=== PATIENT | female | born 1960 | race African-American/Black ===

== ENCOUNTER 2016-06-18 08:04 | Emergency (ER) | payer OTHER ==
--- NOTE | 2016-06-18 08:25 | PDOC ---
Attending Attestation - Resident Resident Name: CapriVictor Ma - ED Attending Attestation I have performed the following: I have examined & evaluated the patient, The case was reviewed & discussed with the resident, I agree w/resident's findings & plan, Exceptions are as noted - HPI HPI: 06/18/16 08:27 The patient is a 55-year-old female with a significant past medical history of chronic gastritis, chronic intermittent abdominal pain/vomiting (presumed secondary to gastroparesis due to long-term marijuana use), who presents to the emergency department with abdominal pain, nausea and vomiting. She states that these symptoms are identical to her many previous episodes. She denies fever, chills, sweats. 06/18/16 08:43 - Physicial Exam PE: 06/18/16 08:30 Abdomen is soft and non-tender 06/18/16 08:46 EKG noted: Normal sinus rhythm at 66, first degree AV block, biphasic/inverted T waves in 1, aVL, V5 and V6 - Medical Decision Making 06/18/16 08:43 The patient is well-appearing and in no acute distress Will obtain labs including CRP and lactic acid to increase negative predictive value of her workup Will administer IV fluids, IV Pepcid, IV morphine, IV Reglan 06/18/16 09:07 She continues to have abdominal pain Repeat abdominal examination, nontender Will await labs and continue to reassess EKG noted with nonspecific T wave changes The patient denies chest pain, dyspnea Given that her symptoms have been ongoing for more than 12 hours, I feel that a single negative troponin has an extremely high negative predictive value for cardiovascular causes of her current symptomatology We have provided her a copy of her EKG, and instructed her to follow-up with her primary care physician as soon as possible, and at minimum on Wednesday, for further evaluation 06/18/16 12:12 Labs noted The patient states that her symptoms of resolved, and she would like to go home She is tolerating fluids Repeat abdominal examination: Nontender Clinical impression: Acute exacerbation of chronic gastroparesis I discussed the physical exam findings, ancillary test results and final diagnoses with the patient. I answered all of the patient's questions. The patient was satisfied with the care received and felt comfortable with the discharge plan and treatment plan. The patient will call their primary care physician within 24 hours to arrange follow-up and will return to the Emergency Department with any new, persistent or worsening symptoms. A portion of this note was documented by scribe services under my direction. I have reviewed the details of the note, within reason, and agree with the documentation with the following case summary and management plan written by me.
[2016-06-18] MEDS ORDERED: FAMOTIDINE 20 MG/50 ML IVPB 50 ML IVPB ONE ×2 (08:37→09:30)
[2016-06-18] MEDS ORDERED: morphine CARPU-JECT 4 MG/1 ML DISP.SYRIN IVPUSH ONE (08:37)
[2016-06-18] MEDS ORDERED: SODIUM CHLORIDE 1,000 ML IV STA (08:37)
[2016-06-18] MEDS ORDERED: METOCLOPRAMIDE HCL INJECTION 10 MG/2 ML VIAL IVPB ONE (08:37)
--- NOTE | 2016-06-18 08:42 | PDOC ---
History of Present Illness - General Stated Complaint: ABDOMINAL PAIN Time Seen by Provider: 06/18/16 08:11 History Source: Patient Exam Limitations: No Limitations - History of Present Illness Initial Comments: 06/18/16 09:07 Patient is a 55 year old female with chronic gastroparesis due to marijuana smoking who presents to ED with acute onset abdominal pain. She woke up this morning and describes severe LLQ pain that radiated to her groin & back. She states she has had multiple episodes of vomiting but has not had any while in ED. Pain si similar to past episodes, "just worse", according to patient. She is rocking back and forth in bed during interview. She denies chest pain, SOB, hematuria, dysuria, headache, cough. States she last used marijuana yesterday. Last smoked cigarettes yesterday. Past History - Travel Traveled outside of the country in the last 30 days: No Close contact w/someone who was outside of country & ill: No - Past Medical History Allergies/Adverse Reactions: Allergies Allergy/AdvReac Type Severity Reaction Status Date / Time ibuprofen [From Motrin] Allergy Verified 06/18/16 13:18 Home Medications: Ambulatory Orders Amlodipine Besylate [Norvasc -] 10 mg PO DAILY 05/31/15 Pantoprazole Sodium [Protonix -] 20 mg PO BID 06/01/15 Lisinopril [Prinivil] 10 mg PO DAILY #30 tablet 06/04/15 Anemia: No Asthma: No Cancer: No Cardiac Disorders: Yes (irregular heart beat) CVA: No COPD: No CHF: No Dementia: No Diabetes: No GI Disorders: Yes (Gastritis) Disorders: Yes (fibroid uterus) HTN: Yes Hypercholesterolemia: Yes Kidney Stones: No Liver Disease: No Suicide Attempt (Hx): No Seizures: No Thyroid Disease: No - Surgical History Abdominal Surgery: Yes (periumbical HERNIA in childhood) Appendectomy: No Cardiac Surgery: No Cholecystectomy: No Lung Surgery: No Neurologic Surgery: No Orthopedic Surgery: Yes (l leg surgery ,r ankle surgery) - Immunization History Immunization Up to Date: Yes - Psycho/Social/Smoking Cessation Hx Anxiety: No Suicidal Ideation: No Smoking Status: No Smoking History: Current every day smoker Years of Tobacco Use: 40 Have you smoked in the past 12 months: Yes Number of Cigarettes Smoked Daily: 3 Cigars Per Day: 0 'Breaking Loose' booklet given: 01/30/15 Hx Alcohol Use: No Drug/Substance Use Hx: Yes (marijuana (yesterday last use)) Substance Use Type: Marijuana Hx Substance Use Treatment: Yes (h/o crack cocaine quit since 2004) Review of Systems - Review of Systems Able to Perform ROS?: Yes Is the patient limited Azeri proficient: No Constitutional: No: Chills, Fever, Weakness HEENTM: No: Blurred Vision, Nose Congestion, Throat Pain, Difficulty Swallowing Respiratory: No: Cough, Shortness of Breath, SOB with Exertion, Wheezing, Productive cough Cardiac (ROS): No: Chest Pain, Edema, Irregular Heart Rate, Lightheadedness, Palpitations ABD/GI: Yes: Nausea, Vomiting, Abdominal cramping. No: Abdominal Distended, Blood Streaked Bowels, Constipated, Diarrhea : No: Burning, Dysuria Musculoskeletal: Yes: Back Pain Integumentary: No: Bruising, Change in Color, Dryness, Erythema Neurological: No: Headache, Numbness, Tingling, Tremors All Other Systems: Reviewed and Negative *Physical Exam - Physical Exam General Appearance: Yes: Nourished, Appropriately Dressed, Apparent Distress HEENT: positive: EOMI, SYDNIE, Normal ENT Inspection, Pharynx Normal Neck: positive: Trachea midline, Normal Thyroid, Supple Respiratory/Chest: positive: Lungs Clear, Normal Breath Sounds Cardiovascular: positive: Regular Rhythm, Regular Rate, S1, S2 Gastrointestinal/Abdominal: positive: Normal Bowel Sounds, Soft, Other ( NONTENDER TO PALPATION, NO RIGIDITY/GUARDING/REBOUND TENDERNESS) Musculoskeletal: positive: Normal Inspection Extremity: positive: Normal Inspection, Normal Range of Motion Integumentary: positive: Normal Color, Dry, Warm Neurologic: positive: 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 No abdominal tenderness to palpation on exam. Given Reglan, Morphine & Pepcid for symptom relief. Ordered abdominal workup. 06/18/16 10:32 Pain improved but still moderate. Will give Ofirmev 1 gram and reassess. Lipase normal 36. CBC, CMP, Troponin, Lactic acid all within normal limits. 06/18/16 11:06 Patient sleeping in bed comfortably. Vitals stable. Afebrile. Will reassess when awake. 06/18/16 12:13 Patient states pain has resolved. Lying comfortably in bed and states she wants to go home. Instructed to abstain from marijuana and tobacco use to prevent further exacerbations of her chronic gastritis. Instructed to f/u with PCP within 2-3 days to workup new ECG findings. Stable for discharge. *DC/Admit/Observation/Transfer Diagnosis at time of Disposition: Chronic gastritis - Discharge Dispostion Disposition: HOME Condition at time of disposition: Improved Admit: No - Referrals Referrals: Kalani Chase MD [Primary Care Provider] - - Patient Instructions Additional Instructions: AVOID MARIJUANA & TOBACCO USE, THEY WILL MAKE YOUR STOMACH PAIN WORSE! Your EKG shows some abnormalities, it is ESSENTIAL that you followup with your primary care doctor to work it up on Wednesday. BRING YOUR EKG WITH YOU TO YOUR DOCTORS APPOINTMENT!
[2016-06-18 08:47] VITALS: TEMP 98; BMI 32.5
[2016-06-18] MEDS ORDERED: morphine CARPU-JECT 4 MG/1 ML DISP.SYRIN ONE (09:04)
[2016-06-18] MEDS ORDERED: METOCLOPRAMIDE HCL INJECTION 10 MG/2 ML VIAL ONE (09:30)
[2016-06-18 09:55] LABS: URINE APPEARANCE CLEAR; URINE BILIRUBIN NEGATIVE (NEGATIVE); URINE BLOOD NEGATIVE (NEGATIVE); URINE COLOR LTYELLOW; URINE GLUCOSE (UA) NEGATIVE (NEGATIVE); URINE KETONE NEGATIVE (NEGATIVE); URINE LEUK ESTERASE NEGATIVE (NEGATIVE); URINE NITRITE NEGATIVE (NEGATIVE); URINE PROTEIN NEGATIVE (NEGATIVE); URINE UROBILINOGEN NEGATIVE E.U./dl (0.2-1.0)
[2016-06-18 10:11] LABS: BASOPHIL 0.7 % (0-2.0); EOSINOPHIL 1.3 % (0-4.5); MCH 29.5 pg (25.7-33.7); MCHC 32.4 g/dl (32.0-36.0); MEAN CELL VOLUME 90.9 fl (80-96); NEUTROPHILS 58.3 % (42.8-82.8); PLATELET COUNT 254 K/MM3 (134-434); RDW 13.9 % (11.6-15.6); WHITE BLOOD COUNT 5.8 K/mm3 (4.0-10.0)
[2016-06-18 10:18] LABS: URINE MARIJUANA THC POSITIVE ng/ml (CUTOFF=50)
--- NOTE | 2016-06-18 10:28 | EKG ---
Test Reason : Blood Pressure : / mmHG Vent. Rate : 065 BPM Atrial Rate : 065 BPM P-R Int : 244 ms QRS Dur : 096 ms QT Int : 406 ms P-R-T Axes : 054 -14 110 degrees QTc Int : 422 ms SINUS RHYTHM WITH 1ST DEGREE A-V BLOCK ABNORMAL ECG WHEN COMPARED WITH ECG OF 02-JUN-2015 17:03, VT INTERVAL HAS INCREASED VENT. RATE HAS DECREASED BY 38 BPM T WAVE INVERSION NOW EVIDENT IN LATERAL LEADS QT HAS SHORTENED Confirmed by PRINCESS TIPTON MD ([id number]) on 06/18/2016 10:28:34 AM Referred By: Confirmed By:PRINCESS TIPTON MD
[2016-06-18] MEDS ORDERED: ACETAMINOPHEN 1000 MG/100 ML VIAL (NON FORMULARY) IVPB ONE (10:31)
[2016-06-18] MEDS ORDERED: ACETAMINOPHEN INJECTION 100 ML IVPB ONE (10:35)
[2016-06-18 11:55] LABS: ALBUMIN 3.6 g/dl (3.4-5.0); ANION GAP 6 (8-16); BILIRUBIN,TOTAL 0.3 mg/dL (0.2-1.0); CO2 28 mmol/L (21-32); CREATININE 0.8 mg/dL (0.55-1.02); GLUCOSE,RANDOM 95 mg/dL (74-106); SGOT/AST 16 U/L (15-37); SGPT/ALT 18 U/L (12-78); TOT PROT 7.1 g/dl (6.4-8.2)
[2016-06-18 11:56] LABS: ALK PHOS 87 U/L (45-117)
[2016-06-18 11:58] LABS: TROPONIN I < 0.02 ng/ml (0.00-0.05)
[2016-06-18 12:20] LABS: C-REACTIVE PROTEIN < 0.3 MG/DL (0.00-0.3)
[2016-06-18 13:24] VITALS: BP 138/75; PULSE 65
== END 2016-06-18 14:09 | disposition home or self-care (01) ==
LOC: JER 08:04
PROC: 3E033NZ Introduction of Analgesics, Hypnotics, Sedatives into Peripheral Vein, Percutaneous Approach (ICD-10-PCS; principal; 2016-06-18)
PROC: 3E033GC Introduction of Other Therapeutic Substance into Peripheral Vein, Percutaneous Approach (ICD-10-PCS; 2016-06-18)
PROC: 3E0337Z Introduction of Electrolytic and Water Balance Substance into Peripheral Vein, Percutaneous Approach (ICD-10-PCS; 2016-06-18)
DX: K29.50 Unspecified chronic gastritis without bleeding (principal); I10 Essential (primary) hypertension
CPT/HCPCS: 36415; 80053; 80307; 81003; 82550; 83605; 84484; 85025; 86140; 93005; 93010; 99282-25

== ENCOUNTER 2016-06-20 06:32 | Inpatient (IN) | payer OTHER ==
[2016-06-20 06:48] VITALS: BMI 33.8
--- NOTE | 2016-06-20 07:05 | PDOC ---
History of Present Illness - General Chief Complaint: Pain Stated Complaint: ABDOMINAL PAIN Time Seen by Provider: 06/20/16 07:04 History Source: Patient - History of Present Illness Initial Comments: 06/20/16 09:39 Patient is a 55-year-old female past medical history of HTN, intractable vomiting and gastroparesis from chronic marijuana use, presenting to the ED today complaining of diffuse abdominal pain, nausea, and vomiting and states this morning. Patient states her abdominal pain woke her from sleep and she began to vomit. Patient states that since her initial presentation of vomiting she is gagging and cannot stop vomiting. She rates her pain a 10 out of 10 and states that the pain is diffuse but worse over her belly button. She has not taken anything for the nausea vomiting or pain. Denies any new foods or recent antibiotic use recently travel or sick contacts. Patient does admit to marijuana and tobacco use however patient states that she has not used marijuana since her last ER visit on 06/18/2016. Past History - Past Medical History Allergies/Adverse Reactions: Allergies Allergy/AdvReac Type Severity Reaction Status Date / Time ibuprofen [From Motrin] Allergy Verified 06/20/16 06:47 Home Medications: Ambulatory Orders Amlodipine Besylate [Norvasc -] 10 mg PO DAILY 05/31/15 Pantoprazole Sodium [Protonix -] 20 mg PO BID 06/01/15 Lisinopril [Prinivil] 10 mg PO DAILY #30 tablet 06/04/15 Anemia: No Asthma: No Cancer: No Cardiac Disorders: Yes (irregular heart beat) CVA: No COPD: No CHF: No Dementia: No Diabetes: No GI Disorders: Yes (Gastritis) Disorders: Yes (fibroid uterus) HTN: Yes Hypercholesterolemia: Yes Kidney Stones: No Liver Disease: No Suicide Attempt (Hx): No Seizures: No Thyroid Disease: No - Surgical History Abdominal Surgery: Yes (periumbical HERNIA in childhood) Appendectomy: No Cardiac Surgery: No Cholecystectomy: No Lung Surgery: No Neurologic Surgery: No Orthopedic Surgery: Yes (l leg surgery ,r ankle surgery) - Immunization History Immunization Up to Date: Yes - Psycho/Social/Smoking Cessation Hx Anxiety: No Suicidal Ideation: No Smoking Status: No Smoking History: Current every day smoker Years of Tobacco Use: 40 Have you smoked in the past 12 months: Yes Number of Cigarettes Smoked Daily: 3 Cigars Per Day: 0 Information on smoking cessation initiated: Yes 'Breaking Loose' booklet given: 01/30/15 Hx Alcohol Use: No Drug/Substance Use Hx: No Substance Use Type: Marijuana Hx Substance Use Treatment: Yes (h/o crack cocaine quit since 2004) *Physical Exam - Vital Signs Last Vital Signs Temp Pulse Resp BP Pulse Ox 97.9 F 86 20 187/100 100 06/20/16 06:44 06/20/16 06:44 06/20/16 06:44 06/20/16 06:44 06/20/16 06:44 - Physical Exam Comments: 06/20/16 09:43 GENERAL: Well developed, well nourished. Awake and alert. In moderate distress rolling on bed. HEENT: Normocephalic, atraumatic. PERRLA, EOMI. No conjunctival pallor. Sclera are non- icteric. Moist mucous membranes. Oropharynx is clear. NECK: Supple. Full ROM. No JVD. Carotid pulses 2+ and symmetric, without bruits. No thyromegaly. No lymphadenopathy. CARDIOVASCULAR: Regular rate and rhythm. No murmurs, rubs, or gallops. Distal pulses are 2+ and symmetric. PULMONARY: No evidence of respiratory distress. Lungs clear to auscultation bilaterally. No wheezing, rales or rhonchi. ABDOMINAL: (+) tenderness over the periumbilical region, LLQ and RRQ. Soft. Non-distended. No rebound or guarding. (-) psoas/obturator sign. No organomegaly. Normoactive bowel sounds. MUSCULOSKELETAL Normal range of motion at all joints. No bony deformities or tenderness. No CVA tenderness. EXTREMITIES: No cyanosis. No clubbing. No edema. No calf tenderness. SKIN: Warm and dry. Normal capillary refill. No rashes. No jaundice. NEUROLOGICAL: Alert, awake, appropriate. Cranial nerves 2-12 intact. No deficits to light touch and temperature in face, upper extremities and lower extremities. No motor deficits in the in face, upper extremities and lower extremities. Normoreflexic in the upper and lower extremities. Normal speech. Toes are down- going bilaterally. Gait is normal without ataxia. PSYCHIATRIC: Cooperative. Good eye contact. Appropriate mood and affect. ED Treatment Course - LABORATORY CBC & Chemistry Diagram: 06/20/16 08:10 06/20/16 08:10 Medical Decision Making - Medical Decision Making 06/20/16 07:46 Patient is a 55-year-old female presenting with nausea, and vomiting, abdominal pain 4 hours. Patient appears uncomfortable will medicate for pain and treat nausea symptoms. Will draw basic labs to look for signs of infection, hydration status, kidney function. we'll also draw a lipase level and cardiac labs. Less concerned for bowel obstruct or perforation given lack of peritoneal signs. Will reevaluate. 1. CBC, CMP, UA for infection 2. EKG, cardiac labs 3. Morphine, Zofran, pepsid and fluids for symptomatic relief. Will re-evaluate 06/20/16 08:51 Pt. is still complaining of pain. Nausea and vomiting has stopped at this point. Will try mylanta and bentyl now. Re-evaluate 06/20/16 10:30 Pt. appears to be resting comfortably she is no longer rolling on the bed, but she is still complaining of 10/10 abdominal pain. Will try IV tylenol at this time as it seemed to help her symptoms during her last visit. 06/20/16 11:43 Pt. was gagging/dry heaving while having her EKG done. Ordered reglan and benadryl. While putting in the order pt. fell asleep. Will wait to see how she feels when she wakes up before administering the reglan and benadryl. 06/20/16 12:17 Pt is still vomiting. Will give the reglan and benadryl at this time. Will also give one of dilaudid. Given the amount of pain and intractable vomiting, will admit to obs. EKG shows prolonged WI interval with T wave inversions in the I, aVL, V6.This is unchanged from her visit on 06/18/16; however these changes were new at that time. Will admit to tele obs. *DC/Admit/Observation/Transfer Diagnosis at time of Disposition: Intractable abdominal pain Intractable nausea and vomiting Qualifiers: Vomiting type: cyclical vomiting Qualified Code(s): G43.A1 - Cyclical vomiting , intractable - Discharge Dispostion Condition at time of disposition: Stable Admit: Yes
[2016-06-20] MEDS ORDERED: ONDANSETRON 4 MG/2 ML VIAL IVPUSH ONE (07:20)
[2016-06-20] MEDS ORDERED: FAMOTIDINE 20 MG/50 ML IVPB 50 ML IVPB ONE ×2 (07:20→07:42)
[2016-06-20] MEDS ORDERED: SODIUM CHLORIDE 1,000 ML IV STA (07:20)
[2016-06-20] MEDS ORDERED: morphine CARPU-JECT 2 MG/1 ML DISP.SYRIN IVPUSH ONE (07:22)
[2016-06-20] MEDS ORDERED: ONDANSETRON 4 MG/2 ML VIAL ONE (07:42)
[2016-06-20] MEDS ORDERED: morphine CARPU-JECT 2 MG/1 ML DISP.SYRIN ONE (07:42)
[2016-06-20 08:21] LABS: BASOPHIL 0.4 % (0-2.0); EOSINOPHIL 0.1 % (0-4.5); MCHC 32.8 g/dl (32.0-36.0); MEAN CELL VOLUME 91.5 fl (80-96); MEAN PLT VOLUME 9.7 fl (7.5-11.1); NEUTROPHILS 85.5 % (42.8-82.8); PLATELET COUNT 246 K/MM3 (134-434); RDW 13.8 % (11.6-15.6); WHITE BLOOD COUNT 7.5 K/mm3 (4.0-10.0)
[2016-06-20 08:49] LABS: ALBUMIN 4.2 g/dl (3.4-5.0); ANION GAP 8 (8-16); BILIRUBIN,TOTAL 0.4 mg/dL (0.2-1.0); CALCIUM 9.1 mg/dL (8.5-10.1); CO2 24 mmol/L (21-32); CREATININE 0.8 mg/dL (0.55-1.02); GLUCOSE,RANDOM 155 mg/dL (74-106); SGPT/ALT 24 U/L (12-78); TOT PROT 8.6 g/dl (6.4-8.2)
[2016-06-20 08:52] LABS: ALK PHOS 96 U/L (45-117); TROPONIN I < 0.02 ng/ml (0.00-0.05)
[2016-06-20 08:54] LABS: SGOT/AST 27 U/L (15-37)
[2016-06-20] MEDS ORDERED: DICYCLOMINE HCL 20 MG TABLET PO ONE (09:17)
[2016-06-20] MEDS ORDERED: MAG HYDROX/AL HYDROX/SIMETH 30 ML UNIT-DOSE CUP PO ONE (09:17)
[2016-06-20] MEDS ORDERED: DICYCLOMINE HCL 10 MG CAPSULE ONE (09:42)
[2016-06-20] MEDS ORDERED: MAG HYDROX/AL HYDROX/SIMETH 30 ML UNIT-DOSE CUP ONE (09:42)
[2016-06-20] MEDS ORDERED: ACETAMINOPHEN 1000 MG/100 ML VIAL (NON FORMULARY) IVPB ONE (10:27)
--- NOTE | 2016-06-20 10:40 | PDOC ---
*Physical Exam - Vital Signs Last Vital Signs Temp Pulse Resp BP Pulse Ox 98.4 F 83 20 130/82 100 06/20/16 07:55 06/20/16 07:55 06/20/16 06:44 06/20/16 07:55 06/20/16 07:55 - Physical Exam Comments: 06/20/16 10:40 The patient was examined by [SHARON Welsh] under my direct supervision. I personally evaluated the patient. I concur with the above findings and the plan of care. 06/20/16 15:56 Called to patient's bedside. Patient with significantly elevated blood pressure. Patient reports that she hasn't taken any of her antihypertensive medications for the past 2 days due to abdominal pain and vomiting. Will initiate nitroglycerin drip IV. Will attempt administering by mouth meds with a goal of the weaning off nitroglycerin after a period of time. ED Treatment Course - LABORATORY CBC & Chemistry Diagram: 06/20/16 08:10 06/20/16 08:10 - ADDITIONAL ORDERS Additional order review: Laboratory Results 06/20/16 08:10 Sodium 141 Potassium 4.5 Chloride 109 H Carbon Dioxide 24 Anion Gap 8 BUN 13 D Creatinine 0.8 Creat Clearance w eGFR > 60 Random Glucose 155 H D Calcium 9.1 Total Bilirubin 0.4 D AST 27 D ALT 24 D Alkaline Phosphatase 96 Creatine Kinase 165 D CK-MB (CK-2) 1.786 Troponin I < 0.02 Total Protein 8.6 H D Albumin 4.2 Lipase 105 06/20/16 08:10 RBC 4.93 MCV 91.5 MCHC 32.8 RDW 13.8 MPV 9.7 Neutrophils % 85.5 H D Lymphocytes % 11.9 D Monocytes % 2.1 L Eosinophils % 0.1 D Basophils % 0.4 - Medications Given in the ED: ED Medications Discontinued Medications Generic Name Dose Route Start Last Admin Trade Name Freq PRN Reason Stop Dose Admin Al Hydroxide/Mg Hydroxide 30 ml 06/20/16 09:17 06/20/16 09:40 Mylanta Oral Suspension - PO 06/20/16 09:18 30 ml ONCE ONE Administration Dicyclomine HCl 20 mg 06/20/16 09:17 06/20/16 09:40 Bentyl - PO 06/20/16 09:18 20 mg ONCE ONE Administration Famotidine/Sodium Chloride 50 mls @ 100 mls/hr 06/20/16 07:20 06/20/16 08:15 Pepcid 20 Mg Premixed Ivpb - IVPB 06/20/16 07:49 100 mls/hr ONCE ONE Administration Sodium Chloride 1,000 mls @ 1,000 mls/hr 06/20/16 07:20 06/20/16 08:15 Normal Saline - IV 06/20/16 08:19 1,000 mls/hr ASDIR STA Administration Morphine Sulfate 2 mg 06/20/16 07:22 06/20/16 08:15 Morphine Injection - IVPUSH 06/20/16 07:23 2 mg ONCE ONE Administration Ondansetron HCl 4 mg 06/20/16 07:20 06/20/16 08:15 Zofran Injection IVPUSH 06/20/16 07:21 4 mg ONCE ONE Administration *DC/Admit/Observation/Transfer Diagnosis at time of Disposition: Intractable nausea and vomiting, Intractable abdominal pain - Discharge Dispostion Condition at time of disposition: Stable
[2016-06-20] MEDS ORDERED: ACETAMINOPHEN INJECTION 100 ML IVPB ONE (10:46)
[2016-06-20] MEDS ORDERED: METOCLOPRAMIDE HCL INJECTION 10 MG/2 ML VIAL IVPUSH ONE (11:27)
[2016-06-20] MEDS ORDERED: HYDROmorphone HCL CARPU-JECT 1 MG/1 ML DISP.SYRIN IVPUSH ONE (12:24)
[2016-06-20] MEDS ORDERED: HYDROmorphone HCL CARPU-JECT 1 MG/1 ML DISP.SYRIN ONE (12:31)
[2016-06-20] MEDS ORDERED: METOCLOPRAMIDE HCL INJECTION 10 MG/2 ML VIAL ONE (12:32)
[2016-06-20] MEDS ORDERED: METOCLOPRAMIDE HCL 10 MG TABLET (FP) PO ONE (12:32)
--- NOTE | 2016-06-20 13:11 | EKG ---
Test Reason : Blood Pressure : / mmHG Vent. Rate : 066 BPM Atrial Rate : 066 BPM P-R Int : 316 ms QRS Dur : 096 ms QT Int : 410 ms P-R-T Axes : 038 -14 121 degrees QTc Int : 429 ms SINUS RHYTHM WITH SINUS ARRHYTHMIA WITH 1ST DEGREE A-V BLOCK POSSIBLE LEFT ATRIAL ENLARGEMENT SEPTAL INFARCT , AGE UNDETERMINED MARKED ST ABNORMALITY, POSSIBLE LATERAL SUBENDOCARDIAL INJURY ABNORMAL ECG Confirmed by SALOME BOB MD ([id number]) on 06/20/2016 1:11:37 PM Referred By: Confirmed By:SALOME BOB MD
[2016-06-20 13:12] LABS: URINE APPEARANCE CLEAR; URINE BILIRUBIN NEGATIVE (NEGATIVE); URINE BLOOD NEGATIVE (NEGATIVE); URINE COLOR STRAW; URINE GLUCOSE (UA) 2+ (NEGATIVE); URINE KETONE 1+ (NEGATIVE); URINE LEUK ESTERASE NEGATIVE (NEGATIVE); URINE NITRITE NEGATIVE (NEGATIVE); URINE UROBILINOGEN NEGATIVE E.U./dl (0.2-1.0)
--- NOTE | 2016-06-20 13:16 | HP ---
PCP: Kalani Chase CHIEF COMPLAINT: Nausea and vomiting HISTORY OF PRESENT ILLNESS: This is a 55-year-old woman who presented to the ER this morning complaining of nausea, vomiting and abdominal pain for the last 4 days. The pain is diffuse. She denies hematemesis, melena, rectal bleeding, weight loss, flank pain, dysuria, hematuria. She has not been able to keep down liquids or solid food. She had been seen in the ER for the same complaints on 06/18. She was treated with Reglan, morphine, Pepcid and acetaminophen IV, and she was discharged. She was advised to avoid tobacco and marijuana. She last used marijuana on 06/18. After, receiving morphine, Zofran, Reglan, IV fluid and Dilaudid in the ER, she feels only a little bit better. PAST MEDICAL HISTORY HTN Gastritis Gastroparesis PAST SURGICAL HISTORY Hysterectomy Hernia repair Allergies ibuprofen [From Motrin] Allergy (Verified 06/20/16 06:47) HOME MEDICATIONS 3 Medication Instructions Recorded Amlodipine Besylate [Norvasc -] 10 mg PO DAILY 05/31/15 Pantoprazole Sodium [Protonix -] 20 mg PO BID 06/01/15 Lisinopril [Prinivil] 10 mg PO DAILY #30 tablet 06/04/15 Social History: Smoking: Smokes less than 1/2 PPD Alcohol: None Drugs: Marijuana Recent Travel: No Family History: Non-contributory REVIEW OF SYSTEMS CONSTITUTIONAL: Present: chills. Absent: fever, diaphoresis, generalized weakness, malaise, loss of appetite, weight change HEENT: Absent: rhinorrhea, nasal congestion, throat pain, throat swelling, difficulty swallowing, mouth swelling, ear pain, eye pain, visual changes CARDIOVASCULAR: Absent: chest pain, syncope, palpitations, lightheadedness, peripheral edema RESPIRATORY: Absent: cough, shortness of breath, dyspnea with exertion, orthopnea, wheezing, stridor, hemoptysis GASTROINTESTINAL: Present: abdominal pain, nausea, vomiting. Absent: abdominal distension, diarrhea, constipation, melena, hematochezia GENITOURINARY: Absent: dysuria, frequency, urgency, hesitancy, hematuria MUSCULOSKELETAL: Absent: myalgia, arthralgia, joint swelling, back pain, neck pain SKIN: Absent: rash, itching, pallor HEMATOLOGIC/IMMUNOLOGIC: Absent: easy bleeding, easy bruising, lymphadenopathy, frequent infections ENDOCRINE: Absent: unexplained weight gain, unexplained weight loss, heat intolerance, cold intolerance NEUROLOGIC: Absent: headache, focal weakness, paresthesias, dizziness, unsteady gait, seizure, mental status changes, bladder or bowel incontinence PSYCHIATRIC: Absent: anxiety, depression, suicidal or homicidal ideation, hallucinations. PHYSICAL EXAMINATION Vital Signs Period Temp Pulse Resp BP Sys/Martinez Pulse Ox Last 24 Hr 97.9 F-98.4 F 83-86 20 130-187/82-100 100-100 GENERAL: Awake, alert, and fully oriented, in no acute distress. HEAD: Normal with no signs of trauma. EYES: Pupils equal, round and reactive to light, extraocular movements intact, sclerae anicteric, conjunctivae clear. EARS, NOSE, THROAT: Ears normal, nares patent, oropharynx clear without exudates. Moist mucous membranes. NECK: Normal range of motion, supple without lymphadenopathy, JVD, or masses. LUNGS: Breath sounds equal, clear to auscultation bilaterally. No wheezes, and no crackles. No accessory muscle use. HEART: Regular rate and rhythm, normal S1 and S2 without murmur, rub or gallop. ABDOMEN: Obese, soft, mild epigastric tenderness, not distended, normoactive bowel sounds, no guarding, no rebound, no masses. No hepatomegaly or splenomegaly. MUSCULOSKELETAL: Normal range of motion at all joints. No bony deformities or tenderness. No CVA tenderness. UPPER EXTREMITIES: 2+ pulses, warm, well-perfused. No cyanosis. No clubbing. Cap refill <2 seconds. No peripheral edema. LOWER EXTREMITIES: 2+ pulses, warm, well-perfused. No calf tenderness. No peripheral edema. NEUROLOGICAL: Cranial nerves II-XII intact. Normal speech. Gait not observed. PSYCHIATRIC: Cooperative. Good eye contact. Appropriate mood and affect. SKIN: Warm, dry, normal turgor, no rashes or lesions noted. Laboratory Results - last 24 hr 06/20/16 06/20/16 08:10 08:10 WBC 7.5 RBC 4.93 Hgb 14.8 Hct 45.1 MCV 91.5 MCHC 32.8 RDW 13.8 Plt Count 246 MPV 9.7 Neutrophils % 85.5 H D Lymphocytes % 11.9 D Monocytes % 2.1 L Eosinophils % 0.1 D Basophils % 0.4 Sodium 141 Potassium 4.5 Chloride 109 H Carbon Dioxide 24 Anion Gap 8 BUN 13 D Creatinine 0.8 Creat Clearance w eGFR > 60 Random Glucose 155 H D Calcium 9.1 Total Bilirubin 0.4 D AST 27 D ALT 24 D Alkaline Phosphatase 96 Creatine Kinase 165 D CK-MB (CK-2) 1.786 Troponin I < 0.02 Total Protein 8.6 H D Albumin 4.2 Lipase 105 EKG: Sinus rhythm, rate 66. Sinus arrhythmia. 1st degree AVB. Inverted Ts in I, aVL. ST depressions in V5-V6. ASSESSMENT/PLAN: This is a 55-year-old woman with a history of gastroparesis, marijuana use, HTN , gastritis who comes to the ER because of abdominal pain, nausea, vomiting x 4 days. She is being placed in observation now for further evaluation of an emergent condition. 1. Intractable nausea and vomiting secondary to gastroparesis - IV fluid - NPO and advance diet as tolerated - Reglan IV - Discussed marijuana avoidance 2. Abnormal EKG - No change from 06/18 - Troponin negative x 1 - Serial troponins - Echocardiogram - Monitor on telemetry 3. Hypertension - Continue Norvasc, Lisinopril 4. Gastritis - Continue Protonix 5. Marijuana use Problem List - Problem (1) Abnormal EKG Code(s): R94.31 - ABNORMAL ELECTROCARDIOGRAM [ECG] [EKG] Visit type - Emergency Visit Emergency Visit: Yes Care time: The patient presented to the Emergency Department on the above date and was hospitalized for further evaluation of their emergent condition. - New Patient This patient is new to me today: Yes Date on this admission: 06/20/16 - Critical Care Critical Care patient: No
[2016-06-20 13:18] LABS: URINE PROTEIN 1+ (NEGATIVE)
[2016-06-20 13:23] LABS: URINE BACTERIA RARE /hpf (NONE SEEN); URINE MUCUS RARE; URINE RBC 7 /hpf (0-3); URINE WBC 2 /hpf (3-5)
[2016-06-20] MEDS ORDERED: METOCLOPRAMIDE HCL INJECTION 10 MG/2 ML VIAL IVPB PRN (13:33)
[2016-06-20] MEDS ORDERED: SODIUM CHLORIDE 1,000 ML IV SCH (13:45)
[2016-06-20] MEDS ORDERED: LABETALOL HCL 5 MG/1 ML (100MG/20 ML VIAL) IVPUSH ONE (14:41)
[2016-06-20] MEDS ORDERED: LABETALOL HCL 5 MG/1 ML (200MG/40ML VIAL) IVPB ONE (14:43)
[2016-06-20] MEDS ORDERED: NITROGLYCERIN 25MG/D5W 250ML 250 ML IVPB ONE (15:58)
[2016-06-20] MEDS ORDERED: NITROGLYCERIN 25MG/D5W 250ML 250 ML IVPB SCH (16:00)
[2016-06-20] MEDS ORDERED: LISINOPRIL 10 MG TABLET (FP) PO ONE (16:00)
[2016-06-20] MEDS ORDERED: amLODIPine BESYLATE 10 MG TABLET (FP) PO ONE (16:00)
[2016-06-20] MEDS ORDERED: amLODIPine BESYLATE 5 MG TABLET (FP) ONE (16:22)
[2016-06-20] MEDS ORDERED: LISINOPRIL 5 MG TABLET (FP) ONE (16:22)
[2016-06-20] MEDS: HYDROmorphone HCL CARPU-JECT 1 MG/1 ML DISP.SYRIN IVPB PRN (19:49)
[2016-06-20] MEDS: ACETAMINOPHEN 325 MG TABLET (FP) PO PRN (21:17)
[2016-06-20] MEDS: PANTOPRAZOLE 20 MG TABLET (FP) PO SCH (21:17)
[2016-06-21] MEDS: HYDROmorphone HCL CARPU-JECT 1 MG/1 ML DISP.SYRIN IVPB PRN ×4 (00:49→19:49)
[2016-06-21] MEDS ORDERED: diphenhydrAMINE HCL 25 MG CAPSULE (FP) PO ONE (01:30)
[2016-06-21 08:04] LABS: CALCIUM 8.8 mg/dL (8.5-10.1); CREATININE 1.8 mg/dL (0.55-1.02); MAGNESIUM 2.1 mg/dL (1.8-2.4); PHOSPHOROUS 3.9 mg/dL (2.5-4.9)
[2016-06-21] MEDS: amLODIPine BESYLATE 10 MG TABLET (FP) PO SCH (10:09)
[2016-06-21] MEDS: LISINOPRIL 10 MG TABLET (FP) PO SCH (10:09)
[2016-06-21] MEDS: PANTOPRAZOLE 20 MG TABLET (FP) PO SCH ×2 (10:09→21:41)
[2016-06-21] MEDS ORDERED: SODIUM CHLORIDE 0.45% 1,000 ML IV SCH ×2 (11:00→17:25)
--- NOTE | 2016-06-21 14:27 | CONSULT ---
Consult - text type - Consultation Consultation Note: Cardiology 55-year-old woman who presented to the ER this morning complaining of nausea, vomiting and abdominal pain for the last 4 days. She had been seen in the ER for the same complaints on 06/18. She was treated with Reglan, morphine, Pepcid and acetaminophen IV, and she was discharged. She was advised to avoid tobacco and marijuana. She last used marijuana on 06/18. No cardiac symptoms. PAST MEDICAL HISTORY HTN Gastritis Gastroparesis PAST SURGICAL HISTORY Hysterectomy Hernia repair Allergies ibuprofen [From Motrin] Allergy (Verified 06/20/16 06:47) HOME MEDICATIONS 3 Medication Instructions Recorded Amlodipine Besylate [Norvasc -] 10 mg PO DAILY 05/31/15 Pantoprazole Sodium [Protonix -] 20 mg PO BID 06/01/15 Lisinopril [Prinivil] 10 mg PO DAILY #30 tablet 06/04/15 Social History: Smoking: Smokes less than 1/2 PPD Alcohol: None Drugs: Marijuana Recent Travel: No Family History: Non-contributory REVIEW OF SYSTEMS NA PE vitals stable normal cardio-pulmonary exam abdomen soft but tender no leg edema Impression: GI symptoms no evidence of NV or CHF EKG ST deprssion T changes laterally rule out CAD when stable BP labile Rec: Echoacrdiogram Nuclear stress test, when recuperates.
--- NOTE | 2016-06-21 17:09 | PN ---
Physical Exam: SUBJECTIVE: Patient seen and examined on tele. She says she needs to eat smaller portions, she also noted when she walks up her 4 story walk up she is dripping in sweat and her legs hurt OBJECTIVE: Vital Signs Period Temp Pulse Resp BP Sys/Martinez Pulse Ox Last 24 Hr 98 F-98.8 F 61-88 18-22 117-205/56-125 97-99 PE Neuro: alert, awake, cn 2-12intact HEENT: PERRLA Pulm: CTAB CV: s1 s2 rrr no mrg Abd: mid line scar from hernia repair, healed, abd soft tender to palpation +bs Ext: Warm, no le edema Laboratory Results - last 24 hr 06/20/16 06/20/16 06/21/16 18:25 21:39 05:35 Sodium 137 Potassium 3.8 Chloride 100 Carbon Dioxide 27 Anion Gap 10 BUN 18 D Creatinine 1.8 H D Random Glucose 87 D Calcium 8.8 Phosphorus 3.9 D Magnesium 2.1 D Troponin I 0.02 0.05 Active Medications Generic Name Dose Route Start Last Admin Trade Name Freq PRN Reason Stop Dose Admin Acetaminophen 650 mg 06/20/16 13:33 06/20/16 21:17 Tylenol - PO 650 mg Q4H PRN Administration FEVER OR PAIN Amlodipine Besylate 10 mg 06/21/16 10:00 06/21/16 10:09 Norvasc - PO 10 mg DAILY AMANDA Administration Hydromorphone HCl 1 mg 06/20/16 13:33 06/21/16 13:23 Dilaudid Injection - IVPB 1 mg Q4H PRN Administration PAIN Nitroglycerin/Dextrose 250 mls @ 12 mls/hr 06/20/16 16:00 06/20/16 17:24 Nitroglycerin 25mg/D5w 250ml IVPB 30 mcg/min TITR AMANDA Titration 20 MCG/MIN Sodium Chloride 1,000 mls @ 83 mls/hr 06/21/16 11:00 06/21/16 11:58 1/2 Normal Saline IV 83 mls/hr ASDIR AMANDA Administration Lisinopril 10 mg 06/21/16 10:00 06/21/16 10:09 Prinivil PO 10 mg DAILY AMANDA Administration Metoclopramide HCl 10 mg 06/20/16 13:33 Reglan Injection - IVPB Q6H PRN NAUSEA AND/OR VOMITING Pantoprazole Sodium 20 mg 06/20/16 22:00 06/21/16 10:09 Protonix - PO 20 mg BID AMANDA Administration Assessment: 55-year-old woman with a history of gastroparesis, marijuana use, HTN, gastritis admitted with abdominal pain, nausea, vomiting x 4 days, found to have hypertensive urgency in ED. Plan: 1. Hypertensive Urgency - Nitro gtt discontinued - Resume home dose norvasc, lisinopril - Monitor BP 2. Abnormal EKG - ST changes in V5-V6 - Trops negative - ECHO tomorrow - Stress when stable, rule out CAD - Cardiology consult appreciated 3. KATE - Start 05/11 NS @83cc x1 bag - Trend bmp 4. Gastritis - Continue Protonix - Tolerating regular diet Visit type - Emergency Visit Emergency Visit: Yes ED Registration Date: 06/20/16 Care time: The patient presented to the Emergency Department on the above date and was hospitalized for further evaluation of their emergent condition. - New Patient This patient is new to me today: Yes Date on this admission: 06/21/16 - Critical Care Critical Care patient: No
[2016-06-22] MEDS: HYDROmorphone HCL CARPU-JECT 1 MG/1 ML DISP.SYRIN IVPB PRN ×5 (00:29→22:09)
[2016-06-22 07:47] LABS: ALBUMIN 3.4 g/dl (3.4-5.0); ANION GAP 10 (8-16); CALCIUM 8.4 mg/dL (8.5-10.1); CO2 27 mmol/L (21-32); CREATININE 0.8 mg/dL (0.55-1.02); GLUCOSE,RANDOM 91 mg/dL (74-106); SGOT/AST 24 U/L (15-37); SGPT/ALT 23 U/L (12-78)
[2016-06-22 07:49] LABS: ALK PHOS 70 U/L (45-117); BILIRUBIN,TOTAL 0.4 mg/dL (0.2-1.0); TOT PROT 6.6 g/dl (6.4-8.2)
[2016-06-22] MEDS: amLODIPine BESYLATE 10 MG TABLET (FP) PO SCH (09:21)
[2016-06-22] MEDS: PANTOPRAZOLE 20 MG TABLET (FP) PO SCH ×2 (09:21→22:08)
[2016-06-22] MEDS: LISINOPRIL 10 MG TABLET (FP) PO SCH (09:21)
--- NOTE | 2016-06-22 10:27 | PN ---
Physical Exam: SUBJECTIVE: Patient seen and examined OBJECTIVE: Vital Signs Period Temp Pulse Resp BP Sys/Martinez Pulse Ox Last 24 Hr 98 F-99.5 F 65-78 18-20 131-167/73-94 95 GENERAL: The patient is awake, alert, and fully oriented, in no acute distress. HEAD: Normal with no signs of trauma. EYES: PERRL, extraocular movements intact, sclera anicteric, conjunctiva clear. No ptosis. ENT: Ears normal, nares patent, oropharynx clear without exudates, moist mucous membranes. NECK: Trachea midline, full range of motion, supple. LUNGS: Breath sounds equal, clear to auscultation bilaterally, no wheezes, no crackles, no accessory muscle use. HEART: Regular rate and rhythm, S1, S2 without murmur, rub or gallop. ABDOMEN: Soft, nontender, nondistended, normoactive bowel sounds, no guarding, no rebound, no hepatosplenomegaly, no masses. EXTREMITIES: 2+ pulses, warm, well-perfused, no edema. NEUROLOGICAL: Cranial nerves II through XII grossly intact. Normal speech, gait not observed. PSYCH: Normal mood, normal affect. SKIN: Warm, dry, normal turgor, no rashes or lesions noted Laboratory Results - last 24 hr 06/22/16 05:35 Sodium 139 Potassium 3.6 Chloride 102 Carbon Dioxide 27 Anion Gap 10 BUN 14 D Creatinine 0.8 D Creat Clearance w eGFR > 60 Random Glucose 91 Calcium 8.4 L Total Bilirubin 0.4 AST 24 ALT 23 Alkaline Phosphatase 70 D Total Protein 6.6 D Albumin 3.4 Active Medications Generic Name Dose Route Start Last Admin Trade Name Justinq PRN Reason Stop Dose Admin Acetaminophen 650 mg 06/20/16 13:33 06/20/16 21:17 Tylenol - PO 650 mg Q4H PRN Administration FEVER OR PAIN Amlodipine Besylate 10 mg 06/21/16 10:00 06/22/16 09:21 Norvasc - PO 10 mg DAILY AMANDA Administration Hydromorphone HCl 1 mg 06/20/16 13:33 06/22/16 10:02 Dilaudid Injection - IVPB 1 mg Q4H PRN Administration PAIN Lisinopril 10 mg 06/21/16 10:00 06/22/16 09:21 Prinivil PO 10 mg DAILY AMANDA Administration Metoclopramide HCl 10 mg 06/20/16 13:33 Reglan Injection - IVPB Q6H PRN NAUSEA AND/OR VOMITING Pantoprazole Sodium 20 mg 06/20/16 22:00 06/22/16 09:21 Protonix - PO 20 mg BID AMANDA Administration ASSESSMENT/PLAN: 55 year-old woman with a history of HTN, gastritis, gastroparesis, marijuana use , admitted with abdominal pain, nausea, vomiting x 4 days, found to have hypertensive urgency in ED. Hypertensive urgency Labile blood pressure --BP 244/117 in ED; placed on nitro drip, dc'd today --BP still elevated 154/94 --increase lisinopril to 20mg, continue amlodipine 10mg Abnormal EKG --ST changes in V5-V6 --trops negative x 3 --echo today --nuclear stress tomorrow --cardiology following Gastroparesis --switched to PO Reglan ACHS Gastritis --continue protonix KATE, resolved --Cr 0.8 F/E/N Fluids: PO intake adequate Electrolytes: replete as indicated Nutrition: low sodium DVT prophylaxis: lovenox, oob, ambulation Dispo: continues to require inpatient care. Full Code. Visit type - Emergency Visit Emergency Visit: Yes ED Registration Date: 06/20/16 Care time: The patient presented to the Emergency Department on the above date and was hospitalized for further evaluation of their emergent condition. - New Patient This patient is new to me today: Yes Date on this admission: 06/22/16 - Critical Care Critical Care patient: No
[2016-06-22] MEDS ORDERED: LISINOPRIL 10 MG TABLET (FP) PO SCH (10:30)
[2016-06-22] MEDS: METOCLOPRAMIDE HCL 10 MG TABLET (FP) PO SCH ×3 (10:55→22:08)
[2016-06-22] MEDS: ENOXAPARIN NA (PORCINE) 40 MG/0.4 ML DISP.SYRIN SQ SCH ×2 (10:55→10:58)
[2016-06-22] MEDS ORDERED: LISINOPRIL 10 MG TABLET (FP) PO ONE (11:00)
--- NOTE | 2016-06-22 12:09 | EKG ---
Test Reason : Blood Pressure : / mmHG Vent. Rate : 064 BPM Atrial Rate : 064 BPM P-R Int : 222 ms QRS Dur : 098 ms QT Int : 426 ms P-R-T Axes : 054 -18 084 degrees QTc Int : 439 ms SINUS RHYTHM WITH 1ST DEGREE A-V BLOCK ST depression, consider subendocardial injury NONSPECIFIC T WAVE ABNORMALITY ABNORMAL ECG WHEN COMPARED WITH ECG OF 20-JUN-2016 11:26, COMPARED TO EKG NO SIGNIFICANT CHANGE IS FOUND Confirmed by MARIAJOSE MAIN MD ([id number]) on 06/22/2016 12:09:17 PM Referred By: Hermann ADAIR Confirmed By:MARIAJOSE MAIN MD
--- NOTE | 2016-06-22 19:14 | CONSULT ---
Consult - text type - Consultation Consultation Note: Cardiology 55-year-old woman who presented to the ER this morning complaining of nausea, vomiting and abdominal pain for the last 4 days. She had been seen in the ER for the same complaints on 06/18. She was treated with Reglan, morphine, Pepcid and acetaminophen IV, and she was discharged. She was advised to avoid tobacco and marijuana. She last used marijuana on 06/18. PAST MEDICAL HISTORY HTN Gastritis Gastroparesis PAST SURGICAL HISTORY Hysterectomy Hernia repair Allergies ibuprofen [From Motrin] Allergy (Verified 06/20/16 06:47) HOME MEDICATIONS 3 Medication Instructions Recorded Amlodipine Besylate [Norvasc -] 10 mg PO DAILY 05/31/15 Pantoprazole Sodium [Protonix -] 20 mg PO BID 06/01/15 Lisinopril [Prinivil] 10 mg PO DAILY #30 tablet 06/04/15 Social History: Smoking: Smokes less than 1/2 PPD Alcohol: None Drugs: Marijuana Recent Travel: No Family History: Non-contributory REVIEW OF SYSTEMS NA PE vitals stable normal cardio-pulmonary exam abdomen soft but tender no leg edema Impression: GI symptoms no evidence of ND or CHF EKG ST deprssion T changes laterally rule out CAD when stable BP labile Rec: Echoacrdiogram Nuclear stress test, when recuperates.
[2016-06-23] MEDS: HYDROmorphone HCL CARPU-JECT 1 MG/1 ML DISP.SYRIN IVPB PRN (06:13)
[2016-06-23] MEDS: METOCLOPRAMIDE HCL 10 MG TABLET (FP) PO SCH ×4 (06:13→22:40)
[2016-06-23 08:26] LABS: BASOPHIL 0.7 % (0-2.0); EOSINOPHIL 0.5 % (0-4.5); MCH 29.6 pg (25.7-33.7); MCHC 32.6 g/dl (32.0-36.0); MEAN CELL VOLUME 90.7 fl (80-96); MEAN PLT VOLUME 9.7 fl (7.5-11.1); NEUTROPHILS 47.3 % (42.8-82.8); PLATELET COUNT 234 K/MM3 (134-434); RDW 13.7 % (11.6-15.6); WHITE BLOOD COUNT 5.5 K/mm3 (4.0-10.0)
[2016-06-23 08:40] LABS: ALBUMIN 3.5 g/dl (3.4-5.0); ALK PHOS 79 U/L (45-117); ANION GAP 8 (8-16); BILIRUBIN,TOTAL 0.4 mg/dL (0.2-1.0); CALCIUM 8.7 mg/dL (8.5-10.1); CO2 31 mmol/L (21-32); CREATININE 0.8 mg/dL (0.55-1.02); GLUCOSE,RANDOM 95 mg/dL (74-106); MAGNESIUM 2.1 mg/dL (1.8-2.4); SGOT/AST 18 U/L (15-37); SGPT/ALT 21 U/L (12-78)
[2016-06-23] MEDS ORDERED: LISINOPRIL 20 MG TABLET (FP) PO SCH (10:00)
[2016-06-23] MEDS: amLODIPine BESYLATE 10 MG TABLET (FP) PO SCH (10:15)
[2016-06-23] MEDS ORDERED: HYDROmorphone HCL CARPU-JECT 1 MG/1 ML DISP.SYRIN IVPUSH ONE (10:50)
[2016-06-23] MEDS ORDERED: DIPYRIDAMOLE 50 MG/10 ML VIAL IVPB ONE (11:49)
[2016-06-23] MEDS ORDERED: LOSARTAN POTASSIUM 50 MG TABLET (FP) PO ONE (14:00)
[2016-06-23] MEDS: PANTOPRAZOLE 20 MG TABLET (FP) PO SCH ×2 (14:27→22:40)
[2016-06-23] MEDS: ENOXAPARIN NA (PORCINE) 40 MG/0.4 ML DISP.SYRIN SQ SCH (14:27)
[2016-06-23] MEDS: POTASSIUM CHLORIDE TABS 20 MEQ TABLET.ER (FP) PO SCH ×3 (14:27→22:40)
[2016-06-23] MEDS: ACETAMINOPHEN 325 MG TABLET (FP) PO PRN (14:30)
--- NOTE | 2016-06-23 17:16 | PN ---
Physical Exam: SUBJECTIVE: Patient seen and examined OBJECTIVE: Vital Signs Period Temp Pulse Resp BP Sys/Martinez Pulse Ox Last 24 Hr 97.7 F-99.1 F 64-76 18-20 113-190/47-110 97-99 GENERAL: The patient is awake, alert, and fully oriented, in no acute distress. HEAD: Normal with no signs of trauma. EYES: PERRL, extraocular movements intact, sclera anicteric, conjunctiva clear. No ptosis. ENT: Ears normal, nares patent, oropharynx clear without exudates, moist mucous membranes. NECK: Trachea midline, full range of motion, supple. LUNGS: Breath sounds equal, clear to auscultation bilaterally, no wheezes, no crackles, no accessory muscle use. HEART: Regular rate and rhythm, S1, S2 without murmur, rub or gallop. ABDOMEN: Soft, nontender, nondistended, normoactive bowel sounds, no guarding, no rebound, no hepatosplenomegaly, no masses. EXTREMITIES: 2+ pulses, warm, well-perfused, no edema. NEUROLOGICAL: Cranial nerves II through XII grossly intact. Normal speech, gait not observed. PSYCH: Normal mood, normal affect. SKIN: Warm, dry, normal turgor, no rashes or lesions noted Laboratory Results - last 24 hr 06/23/16 06/23/16 05:45 05:45 WBC 5.5 RBC 4.65 Hgb 13.8 Hct 42.2 MCV 90.7 MCHC 32.6 RDW 13.7 Plt Count 234 MPV 9.7 Neutrophils % 47.3 D Lymphocytes % 43.5 H D Monocytes % 8.0 D Eosinophils % 0.5 D Basophils % 0.7 Sodium 138 Potassium 3.4 L Chloride 99 Carbon Dioxide 31 Anion Gap 8 BUN 10 D Creatinine 0.8 Creat Clearance w eGFR > 60 Random Glucose 95 Calcium 8.7 Magnesium 2.1 Total Bilirubin 0.4 AST 18 D ALT 21 Alkaline Phosphatase 79 Total Protein 7.0 Albumin 3.5 Active Medications Generic Name Dose Route Start Last Admin Trade Name Freq PRN Reason Stop Dose Admin Acetaminophen 650 mg 06/20/16 13:33 06/23/16 14:30 Tylenol - PO 650 mg Q4H PRN Administration FEVER OR PAIN Amlodipine Besylate 10 mg 06/21/16 10:00 06/23/16 10:15 Norvasc - PO 10 mg DAILY AMANDA Administration Enoxaparin Sodium 40 mg 06/22/16 11:00 06/23/16 14:27 Lovenox - SQ 40 mg DAILY AMANDA Administration Lisinopril 20 mg 06/23/16 10:00 06/23/16 10:15 Prinivil PO 20 mg DAILY AMANDA Administration Metoclopramide HCl 10 mg 06/22/16 11:00 06/23/16 14:28 Reglan - PO Not Given ACHS AMANDA Pantoprazole Sodium 20 mg 06/20/16 22:00 06/23/16 14:27 Protonix - PO 20 mg BID AMANDA Administration ASSESSMENT/PLAN: 55 year-old woman with a history of HTN, gastritis, gastroparesis, marijuana use , admitted with abdominal pain, nausea, vomiting. Also with hypertensive urgency. Hypertensive urgency Labile blood pressure --BP to 190/102 today; discussed with Dr. Davidson, gave losartan 50mg x 1 with good response, BP 113/47 --looking back over EMR, since 2014 recorded blood pressures extremely elevated, systolic readings in 240's/diastolic 130's --will increase lisinopril to 40mg, continue amlodipine --cardiology following Abnormal EKG --ST changes in V5-V6 --trops negative x 3 --06/22 echo: mild LVH; normal RV, mild MR, mod TR, trace AI, trace PI --patient completed first part of stress testing today but stopped due to HTN and abdominal pain; finish testing tomorrow; NPO tonight --cardiology following Gastroparesis --switched to PO Reglan ACHS Gastritis --continue protonix KATE, resolved --Cr 0.8 F/E/N Fluids: PO intake adequate Electrolytes: replete as indicated Nutrition: low sodium DVT prophylaxis: lovenox, oob, ambulation Dispo: continues to require inpatient care. Full Code. Visit type - Emergency Visit Emergency Visit: Yes ED Registration Date: 06/22/16 Care time: The patient presented to the Emergency Department on the above date and was hospitalized for further evaluation of their emergent condition. - New Patient This patient is new to me today: No - Critical Care Critical Care patient: No
--- NOTE | 2016-06-23 18:56 | CONSULT ---
Consult - text type - Consultation Consultation Note: Cardiology 55-year-old woman who presented to the ER this morning complaining of nausea, vomiting and abdominal pain for the last 4 days. She had been seen in the ER for the same complaints on 06/18. She was treated with Reglan, morphine, Pepcid and acetaminophen IV, and she was discharged. She was advised to avoid tobacco and marijuana. She last used marijuana on 06/18. PE vitals stable normal cardio-pulmonary exam abdomen soft but tender no leg edema Impression: GI symptoms no evidence of NV or CHF EKG ST deprssion T changes laterally rule out CAD; Stress test tomorrow BP labile, better now Echocardiogram unremarkably normal Rec: continue RX Discharge if NST normal from cardiac standpoint
[2016-06-24] MEDS: amLODIPine BESYLATE 10 MG TABLET (FP) PO SCH ×2 (06:52→14:29)
[2016-06-24] MEDS: METOCLOPRAMIDE HCL 10 MG TABLET (FP) PO SCH ×4 (06:52→21:26)
[2016-06-24 07:16] LABS: EOSINOPHIL 0.6 % (0-4.5); MCH 29.9 pg (25.7-33.7); MCHC 33.3 g/dl (32.0-36.0); MEAN PLT VOLUME 9.3 fl (7.5-11.1); NEUTROPHILS 51.2 % (42.8-82.8); PLATELET COUNT 253 K/MM3 (134-434); RDW 13.6 % (11.6-15.6); WHITE BLOOD COUNT 4.9 K/mm3 (4.0-10.0)
[2016-06-24 08:19] LABS: ALBUMIN 3.5 g/dl (3.4-5.0); ALK PHOS 71 U/L (45-117); ANION GAP 8 (8-16); BILIRUBIN,TOTAL 0.4 mg/dL (0.2-1.0); CALCIUM 8.9 mg/dL (8.5-10.1); CO2 28 mmol/L (21-32); CREATININE 0.8 mg/dL (0.55-1.02); GLUCOSE,RANDOM 100 mg/dL (74-106); MAGNESIUM 2.2 mg/dL (1.8-2.4); SGOT/AST 19 U/L (15-37); SGPT/ALT 19 U/L (12-78); TOT PROT 6.9 g/dl (6.4-8.2)
[2016-06-24] MEDS ORDERED: LOSARTAN POTASSIUM 50 MG TABLET (FP) PO SCH ×2 (10:00)
[2016-06-24] MEDS ORDERED: LISINOPRIL 20 MG TABLET (FP) PO SCH (10:00)
[2016-06-24] MEDS: PANTOPRAZOLE 20 MG TABLET (FP) PO SCH ×2 (14:26→21:26)
[2016-06-24] MEDS: ENOXAPARIN NA (PORCINE) 40 MG/0.4 ML DISP.SYRIN SQ SCH (14:28)
--- NOTE | 2016-06-24 16:38 | PN ---
Physical Exam: SUBJECTIVE: Patient seen and examined s/p stress test. She denies further cp or abdominal pain. She would like to eat. OBJECTIVE: Vital Signs Period Temp Pulse Resp BP Sys/Martinez Pulse Ox Last 24 Hr 97.4 F-99.5 F 73-84 18-20 136-149/73-98 94-95 PE Neuro: alert, awake, cn 2-12intact Pulm: CTAB CV: s1 s2 rrr no mrg Abd: mid line scar from hernia repair, healed, abd soft, +bs Ext: Warm, no le edema CBCD WBC 4.9 K/mm3 (4.0-10.0) 06/24/16 05:35 RBC 4.80 M/mm3 (3.60-5.2) 06/24/16 05:35 Hgb 14.4 GM/dL (10.7-15.3) 06/24/16 05:35 Hct 43.2 % (32.4-45.2) 06/24/16 05:35 MCV 90.0 fl (80-96) 06/24/16 05:35 MCHC 33.3 g/dl (32.0-36.0) 06/24/16 05:35 RDW 13.6 % (11.6-15.6) 06/24/16 05:35 Plt Count 253 K/MM3 (134-434) 06/24/16 05:35 MPV 9.3 fl (7.5-11.1) 06/24/16 05:35 CMP Sodium 138 mmol/L (136-145) 06/24/16 05:35 Potassium 4.3 mmol/L (3.5-5.1) D 06/24/16 05:35 Chloride 102 mmol/L (98-107) 06/24/16 05:35 Carbon Dioxide 28 mmol/L (21-32) 06/24/16 05:35 Anion Gap 8 (8-16) 06/24/16 05:35 BUN 12 mg/dL (7-18) 06/24/16 05:35 Creatinine 0.8 mg/dL (0.55-1.02) 06/24/16 05:35 Creat Clearance w eGFR > 60 (>60) 06/24/16 05:35 Calcium 8.9 mg/dL (8.5-10.1) 06/24/16 05:35 Total Bilirubin 0.4 mg/dL (0.2-1.0) 06/24/16 05:35 AST 19 U/L (15-37) 06/24/16 05:35 ALT 19 U/L (12-78) 06/24/16 05:35 Alkaline Phosphatase 71 U/L (45-117) 06/24/16 05:35 Total Protein 6.9 g/dl (6.4-8.2) 06/24/16 05:35 Albumin 3.5 g/dl (3.4-5.0) 06/24/16 05:35 Current Medications Generic Name Dose Route Start Last Admin Trade Name Freq PRN Reason Stop Dose Admin Acetaminophen 650 mg 06/20/16 13:33 06/23/16 14:30 Tylenol - PO 650 mg Q4H PRN Administration FEVER OR PAIN Amlodipine Besylate 10 mg 06/21/16 10:00 06/24/16 14:29 Norvasc - PO Not Given DAILY AMANDA Enoxaparin Sodium 40 mg 06/22/16 11:00 06/24/16 14:28 Lovenox - SQ Not Given DAILY AMANDA Losartan Potassium 50 mg 06/24/16 10:00 06/24/16 14:26 Cozaar - PO 50 mg DAILY AMANDA Administration Metoclopramide HCl 10 mg 06/22/16 11:00 06/24/16 14:29 Reglan - PO Not Given ACHS AMANDA Pantoprazole Sodium 20 mg 06/20/16 22:00 06/24/16 14:26 Protonix - PO 20 mg BID AMANDA Administration Imaging: ECHO 06/22: mild LVH; normal RV, mild MR, mod TR, trace AI, trace PI Assessment: 55-year-old woman with a history of gastroparesis, marijuana use, HTN, gastritis admitted with abdominal pain, nausea, vomiting x 4 days, found to have hypertensive urgency in ED. Plan: 1. Hypertensive urgency - BP is better controlled today - Stop lisinopril 40mg daily - Continue Losartan 50mg daily - Continue Norvasc 10mg daily 2. Abnormal stress test suggestive of CAD - Stress test today shows large sized of severe intensity posterior and lateral wall reversible perfusion defect c/w ischemia 79%. EF 80% - Discussed with Cardiology will arrange for cardiac cath tomorrow - Discussed findings with patient she agrees to go for cath - Start ASA, Lipitor 40mg, Lopressor 25mg 3. Gastroparesis - Reglan PO ACHS 4. Gastritis - Continue protonix 5. KATE, resolved 6. DVT prophylaxis - lovenox, oob, ambulation Dispo: - Transfer for Cardiac Catheterization Visit type - Emergency Visit Emergency Visit: Yes ED Registration Date: 06/22/16 Care time: The patient presented to the Emergency Department on the above date and was hospitalized for further evaluation of their emergent condition. - New Patient This patient is new to me today: No - Critical Care Critical Care patient: No
[2016-06-24] MEDS ORDERED: METOPROLOL TARTRATE 25 MG TABLET (FP) PO ONE (16:49)
[2016-06-24] MEDS ORDERED: ASPIRIN COATED 81 MG TABLET.EC PO SCH (17:00)
[2016-06-24] MEDS ORDERED: ATORVASTATIN CA 40 MG TABLET (FP) PO SCH (22:00)
[2016-06-24 23:40] VITALS: BP 148/78; PULSE 68; TEMP 99.6
--- NOTE | 2016-06-25 09:48 | DS ---
Physical Exam: SUBJECTIVE: Patient seen and examined. No acute issues OBJECTIVE: Vital Signs Period Temp Pulse Resp BP Sys/Martinez Pulse Ox Last 24 Hr 98.1 F-99.6 F 68-84 18-18 137-148/73-92 95 PE Neuro: alert, awake, cn 2-12intact Pulm: CTAB CV: s1 s2 rrr no mrg Abd: mid line scar from hernia repair, healed, abd soft, +bs Ext: Warm, no le edema HOSPITAL COURSE: Date of Admission:06/22/16 Date of Discharge: 06/25/16 Minutes to complete discharge: 35 Discharge Summary Reason For Visit: UNCONTROLLED NASEA AND VOMITING Current Active Problems Abdominal pain (Acute) Abnormal EKG (Acute) Cyclical vomiting (Acute) Gastritis (Acute) Intractable abdominal pain (Acute) Intractable nausea and vomiting (Acute) Chronic gastritis (Chronic) Chronic pain (Chronic) GERD (gastroesophageal reflux disease) (Chronic) Hypertension (Chronic) Irritable bowel syndrome (Chronic) Marijuana abuse (Chronic) Hospital Course: Initial Hospital Course: 55 year old female admitted with nausea, vomiting and abdominal pain for the last 4 days. The pain is diffuse. She has not been able to keep down liquids or solid food. She had been seen in the ER for the same complaints on 06/18/15 and treated with reglan, morphine, pepcid and acetaminophen IV, and she was discharged. She was advised to avoid tobacco and marijuana. She last used marijuana on 06/18. Again during this ER visit, she was given the same treatment and only felt marginally improved. ED course: - Hypertensive urgency and placed on nitro gtt - Abnormal EKG ST changes in V5-V6 Imaging: ECHO 06/22: mild LVH; normal RV, mild MR, mod TR, trace AI, trace PI Subsequent Hospital Course/Progress Note/Discharge Summary by a/p: Plan: 1. Hypertensive urgency - BP is better controlled today - Stop lisinopril 40mg daily - Continue Losartan 50mg daily - Continue Norvasc 10mg daily 2. Abnormal stress test suggestive of CAD - Stress test today shows large sized of severe intensity posterior and lateral wall reversible perfusion defect c/w ischemia 79%. EF 80% - Discussed with Cardiology will arrange for cardiac cath to [facility] - Discussed findings with patient she agrees to go for cath - Start ASA, Lipitor 40mg, Lopressor 25mg 3. Gastroparesis - Improved - Reglan PO ACHS 4. Gastritis - Continue protonix 20mg BID 5. KATE, resolved s/p fluids Dispo: - Transfer for Cardiac Catheterization to [facility] on marissa of 06/24 1. Abnormal EKG - - Trops negative - ECHO tomorrow - Stress when stable, rule out CAD - Cardiology consult appreciated 1. Hypertensive Urgency - s/p nitro gtt - Lisinopril stopped - Losartan started 50mg daily - Norvasc 10mg daily - BP Stable on discharge 3. KATE - Start 05/11 NS @83cc x1 bag - Trend bmp 4. Gastritis - Continue Protonix - Tolerating regular diet Condition: Stable - Instructions Diet, Activity, Other Instructions: Transfer to [facility] for Cardiac Cath on marissa of 06/24/15 Referrals: Kalani Chase MD [Primary Care Provider] - Chance Davidson MD [Staff Physician] - Disposition: TRANSFER ACUTE CARE/OTHER HOSP - Home Medications Comprehensive Discharge Medication List: Ambulatory Orders Amlodipine Besylate [Norvasc -] 10 mg PO DAILY 05/31/15 Pantoprazole Sodium [Protonix -] 20 mg PO BID 06/01/15 Lisinopril [Prinivil] 10 mg PO DAILY #30 tablet 06/04/15 This patient is new to me today: No Emergency Visit: Yes ED Registration Date: 06/22/16 Care time: The patient presented to the Emergency Department on the above date and was hospitalized for further evaluation of their emergent condition. Critical Care patient: No - Discharge Referral Referred to [facility] No
[2016-06-25] MEDS ORDERED: METOPROLOL TARTRATE 25 MG TABLET (FP) PO SCH (10:00)
== END 2016-06-25 00:38 | disposition short-term general hospital (02) | DRG 254 ==
LOC: JER 06:32 → JERBED 12:49 → J4W 19:44 → OBSVTOIN 06-22 15:58
PROVIDERS: ADMIT Internal Medicine; ATTEND Nurse Practitioner Acute Care
DX: K31.84 Gastroparesis (principal); I10 Essential (primary) hypertension; F12.10 Cannabis abuse, uncomplicated; F17.210 Nicotine dependence, cigarettes, uncomplicated; I16.0 Hypertensive urgency; N17.9 Acute kidney failure, unspecified; R94.31 Abnormal electrocardiogram [ECG] [EKG]; K29.50 Unspecified chronic gastritis without bleeding; K21.9 Gastro-esophageal reflux disease without esophagitis; G89.29 Other chronic pain; I25.10 Atherosclerotic heart disease of native coronary artery without angina pectoris
CPT/HCPCS: 36415; 71010-TC; 78452-TC; 80048; 80053; 81003; 81015; 82550; 82553; 83690; 83735; 84100; 84484; 85025; 93005; 93010; 93017; 93306-TC; 99284-25; A9502; G0378

== ENCOUNTER 2018-05-05 19:55 | Emergency (ER) | payer OTHER ==
[2018-05-05 20:09] VITALS: BP 170/88; PULSE 80; TEMP 98.4; BMI 29.8
--- NOTE | 2018-05-05 20:13 | PDOC ---
Rapid Medical Evaluation Time Seen by Provider: 05/05/18 20:06 Medical Evaluation: Allergies Allergy/AdvReac Type Severity Reaction Status Date / Time ibuprofen [From Motrin] Allergy Verified 06/20/16 06:47 05/05/18 20:11 Pt c/o: neck pain after a window closed on the back of her neck, Pt denies headache or upper extremity weakness or sensory changes, Pt on brief exam: no midline tenderness, neli paraspinous tenderness Pt ordered for: cervical xray pt to proceed to the ED Discharge Disposition - Diagnosis Neck pain - Referrals - Patient Instructions - Post Discharge Activity
[2018-05-05] MEDS ORDERED: CYCLOBENZAPRINE HCL 5 MG TABLET PO ONE (22:00)
[2018-05-05] MEDS ORDERED: CYCLOBENZAPRINE HCL 10 MG TABLET (FP) ONE (22:01)
--- NOTE | 2018-05-05 22:12 | PDOC ---
History of Present Illness - General Chief Complaint: Injury Stated Complaint: INJURY-NECK PAIN Time Seen by Provider: 05/05/18 20:06 History Source: Patient Exam Limitations: No Limitations Past History - Past Medical History Allergies/Adverse Reactions: Allergies Allergy/AdvReac Type Severity Reaction Status Date / Time ibuprofen [From Motrin] Allergy Verified 05/05/18 20:07 Home Medications: Ambulatory Orders Amlodipine Besylate [Norvasc -] 10 mg PO DAILY 05/31/15 Lisinopril [Prinivil] 10 mg PO DAILY #30 tablet 06/04/15 Cyclobenzaprine HCl [Flexeril -] 10 mg PO TID PRN #21 tablet 05/05/18 Lidocaine 5% Patch [Lidoderm -] 1 patch TP DAILY #7 patch 05/05/18 Anemia: No Asthma: No Cancer: No Cardiac Disorders: Yes (irregular heart beat) CVA: No COPD: No CHF: No Dementia: No Diabetes: No GI Disorders: Yes (Gastritis) Disorders: Yes (fibroid uterus) HTN: Yes Hypercholesterolemia: Yes Kidney Stones: No Liver Disease: No Seizures: No Thyroid Disease: No - Surgical History Abdominal Surgery: Yes (periumbical HERNIA in childhood) Appendectomy: No Cardiac Surgery: No Cholecystectomy: No Lung Surgery: No Neurologic Surgery: No Orthopedic Surgery: Yes (l leg surgery ,r ankle surgery) - Immunization History Immunization Up to Date: Yes - Suicide/Smoking/Psychosocial Hx Smoking Status: No Smoking History: Current every day smoker Years of Tobacco Use: 40 Have you smoked in the past 12 months: Yes Number of Cigarettes Smoked Daily: 5 Cigars Per Day: 0 Information on smoking cessation initiated: No 'Breaking Loose' booklet given: 01/30/15 Hx Alcohol Use: No Drug/Substance Use Hx: Yes (marijuana (yesterday last use)) Substance Use Type: Marijuana Hx Substance Use Treatment: Yes (h/o crack cocaine quit since 2004) *Physical Exam - Vital Signs Last Vital Signs Temp Pulse Resp BP Pulse Ox 98.4 F 80 18 170/88 98 05/05/18 20:07 05/05/18 20:07 05/05/18 20:07 05/05/18 20:07 05/05/18 20:07 - Physical Exam General Appearance: No: Apparent Distress HEENT: positive: SYDNIE, Other (No evidence of head trauma) Neck: positive: Tender lateral (Along R trapezius muscle). negative: Rigid, Decreased range of motion, Rigidity, Tender midline Respiratory/Chest: positive: Lungs Clear, Normal Breath Sounds. negative: Respiratory Distress Cardiovascular: positive: Regular Rhythm, Regular Rate, S1, S2. 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 negative: Numbness, Sensory Deficit Moderate Sedation - Procedure Monitoring Vital Signs: Procedure Monitoring Vital Signs Temperature 98.4 F 05/05/18 20:07 Pulse Rate 80 05/05/18 20:07 Respiratory Rate 18 05/05/18 20:07 Blood Pressure 170/88 05/05/18 20:07 O2 Sat by Pulse Oximetry (%) 98 05/05/18 20:07 ED Treatment Course - Medications Given in the ED: ED Medications Discontinued Medications Generic Name Dose Route Start Last Admin Trade Name Freq PRN Reason Stop Dose Admin Cyclobenzaprine HCl 10 mg 05/05/18 22:00 05/05/18 22:02 Cyclobenzaprine Hcl PO 05/05/18 22:01 10 mg ONCE ONE Administration Medical Decision Making - Medical Decision Making 57 y/o F hx of HTN presents with neck pain x 2 days. States was pulling window up and then it fell down on her head. Denies [place], LOC, visual changes, numbness/ tingling/weakness of extremities. Has been taking Tylenol without relief Cervical spine xray reviewed - some straightening of spine noted; no fracture Likely muscle spasm Patient unable to take Motrin due to allergy Given Flexeril Rx sent for Flexeril and Lidocaine patch 05/05/18 22:08 *DC/Admit/Observation/Transfer Diagnosis at time of Disposition: Neck pain, Muscle spasm - Discharge Dispostion Disposition: HOME Condition at time of disposition: Good Decision to Admit order: No - Prescriptions Prescriptions: Cyclobenzaprine HCl [Flexeril -] 10 mg PO TID PRN #21 tablet PRN Reason: Muscle Spasms Lidocaine 5% Patch [Lidoderm -] 1 patch TP DAILY #7 patch - Referrals - Patient Instructions Printed Discharge Instructions: DI for Neck Pain Additional Instructions: Thank you for choosing [facility]. It was a pleasure taking care of you. You may take Tylenol 650 mgevery 4 hours by mouth as needed for mild to moderate pain. Do not take more than 4000 mg of Tylenol in 1 day. Take Flexeril as needed for muscle spasms Apply lidocaine patch to help with pain Warm compresses will also help Follow-up with PCP in 2-3 days; consider referral to physical therapist Return to the Emergency Department if your symptoms worsen or persist or have other concerning symptoms. - Post Discharge Activity
== END 2018-05-05 22:16 | disposition home or self-care (01) ==
LOC: JERFT 19:55
DX: M62.838 Other muscle spasm (principal); W20.8XXA Other cause of strike by thrown, projected or falling object, initial encounter; Y93.89 Activity, other specified; Y92.038 Other place in apartment as the place of occurrence of the external cause; Y99.8 Other external cause status; I10 Essential (primary) hypertension; E78.00 Pure hypercholesterolemia, unspecified
CPT/HCPCS: 72050-TC-FY; 99281-25

== ENCOUNTER 2018-05-15 12:36 | Emergency (ER) | payer OTHER ==
[2018-05-15 12:41] VITALS: BP 162/98; PULSE 94; TEMP 97.8; BMI 29.9
--- NOTE | 2018-05-15 13:33 | PDOC ---
History of Present Illness - General Chief Complaint: Back Pain Stated Complaint: PAIN Time Seen by Provider: 05/15/18 13:10 History Source: Patient Exam Limitations: No Limitations - History of Present Illness Initial Comments: 05/15/18 13:27 HISTORY OF PRESENT ILLNESS: This is a 57-year-old woman with past medical history of hypertension presents emergency department for reevaluation of upper back pain status post head trauma. Patient states on 05/04 she was cleaning her windows but fell striking her in the forehead causing her head to snap back. Patient reported pain in her cervical spine was evaluated in this emergency Department on 05/05 which revealed negative x-rays at that time. Patient was prescribed Flexeril and lidocaine patches at that time. Patient has not been using the lidocaine patches only taking Flexeril at night due to sedative affects. No recent travel or sick contacts. PAST MEDICAL HISTORY: HTN SURGICAL HISTORY: Denies ALLERGIES: Motrin REVIEW OF SYSTEMS General/Constitutional: Denies fever or chills. Denies weakness, weight change. HEENT: Denies change in vision. Denies ear pain or discharge. Denies sore throat. Cardiovascular: Denies chest pain or shortness of breath. Respiratory: Denies cough, wheezing, or hemoptysis. Gastrointestinal: Denies nausea, vomiting, diarrhea or constipation. Denies rectal bleeding. Genitourinary: Denies dysuria, frequency, or change in urination. Musculoskeletal: Denies joint or muscle swelling or pain. Upper back/neck pain. Skin and breasts: Denies rash or easy bruising. Neurologic: Denies headache, vertigo, loss of consciousness, or loss of sensation. Psychiatric: Denies depression or anxiety. Endocrine: Denies increased thirst. Denies abnormal weight change. Hematologic/Lymphatic: Denies anemia, easy bleeding, or history of blood clots. Allergic/Immunologic: Denies hives or skin allergy. Denies latex allergy. PHYSICAL EXAM General Appearance: Well-appearing, appropriately dressed. No apparent distress , no intoxication. Neck: Supple. Trachea midline. No tenderness, rigidity, carotid bruit, stridor , lymphadenopathy, or thyromegaly. Respiratory/Chest: Lungs CTAB. No shortness of breath, chest tenderness, respiratory distress, accessory muscle use. No crackles, rales, rhonchi, stridor , wheezing, dullness Cardiovascular: RRR. S1, S2. No JVD, murmur, bradycardia, tachycardia. Lymphatic: No adenopathy, tenderness. Musculoskeletal/Extremities: Normal inspection. FROM of all extremities, normal capillary refill. Pelvis Stable. No CVA tenderness. No tenderness to extremities, pedal edema, swelling, erythema or deformity. Swelling and tenderness present to c7-t1. No deformities, crepitus or step-offs present. FAROM of cervical and thoracic spine. NVI. Integumentary: Appropriate color, dry, warm. No cyanosis, erythema, jaundice or rash Neurologic: seed service advisor II-XII intact. Fully oriented, alert. Appropriate mood/affect. Motor strength 5/5. No appreciable EOM palsy, facial droop or sensory deficit. Past History - Past Medical History Allergies/Adverse Reactions: Allergies Allergy/AdvReac Type Severity Reaction Status Date / Time ibuprofen [From Motrin] Allergy Verified 05/15/18 12:40 Home Medications: Ambulatory Orders Amlodipine Besylate [Norvasc -] 10 mg PO DAILY 05/31/15 Lisinopril [Prinivil] 10 mg PO DAILY #30 tablet 06/04/15 Cyclobenzaprine HCl [Flexeril -] 10 mg PO TID PRN #21 tablet 05/05/18 Lidocaine 5% Patch [Lidoderm -] 1 patch TP DAILY #7 patch 05/05/18 Anemia: No Asthma: No Cancer: No Cardiac Disorders: Yes (irregular heart beat) CVA: No COPD: No CHF: No Dementia: No Diabetes: No GI Disorders: Yes (Gastritis) Disorders: Yes (fibroid uterus) HTN: Yes Hypercholesterolemia: Yes Kidney Stones: No Liver Disease: No Seizures: No Thyroid Disease: No - Surgical History Abdominal Surgery: Yes (periumbical HERNIA in childhood) Appendectomy: No Cardiac Surgery: No Cholecystectomy: No Lung Surgery: No Neurologic Surgery: No Orthopedic Surgery: Yes (l leg surgery ,r ankle surgery) - Immunization History Immunization Up to Date: Yes - Suicide/Smoking/Psychosocial Hx Smoking Status: No Smoking History: Current every day smoker Years of Tobacco Use: 40 Have you smoked in the past 12 months: Yes Number of Cigarettes Smoked Daily: 5 Cigars Per Day: 0 Information on smoking cessation initiated: No 'Breaking Loose' booklet given: 01/30/15 Hx Alcohol Use: No Drug/Substance Use Hx: Yes (marijuana (yesterday last use)) Substance Use Type: Marijuana Hx Substance Use Treatment: Yes (h/o crack cocaine quit since 2004) *Physical Exam - Vital Signs Last Vital Signs Temp Pulse Resp BP Pulse Ox 97.8 F 94 H 18 162/98 99 05/15/18 12:37 05/15/18 12:37 05/15/18 12:37 05/15/18 12:37 05/15/18 12:37 Moderate Sedation - Procedure Monitoring Vital Signs: Procedure Monitoring Vital Signs Temperature 97.8 F 05/15/18 12:37 Pulse Rate 94 H 05/15/18 12:37 Respiratory Rate 18 05/15/18 12:37 Blood Pressure 162/98 05/15/18 12:37 O2 Sat by Pulse Oximetry (%) 99 05/15/18 12:37 Medical Decision Making - Medical Decision Making 05/15/18 13:33 A/P: 57-year-old woman with upper back/neck pain status post whiplash type injury Full active range of motion noted to cervical and thoracic spine Swelling and tenderness present to C7/T1 No bony deformity, crepitus or step offs are noted Neurovascular intact X-rays performed on initial visit were negative for fracture, dislocation or malalignment. Percocet 1 tablet orally now Discharge home with orthopedic follow-up *DC/Admit/Observation/Transfer Diagnosis at time of Disposition: Neck pain, Muscle spasm - Discharge Dispostion Disposition: HOME Condition at time of disposition: Stable Decision to Admit order: No - Referrals Referrals: Kalani Chase MD [Primary Care Provider] - Otis Sorenson MD [Staff Physician] - - Patient Instructions Additional Instructions: Rest, no heavy lifting or exercise until pain is resolved Hot soaks to neck and low back as often as possible/hot showers or Jacuzzis No massage or therapy until spasm is gone Continue Tylenol every 6 hours for the next 3 days then as needed for pain and swelling Robaxin 1500mg every 8 hours as needed for spasm If not significant improvement within 24 hours with medication and rest regime, followup with orthopedist for change in medications and /or therapy. - Post Discharge Activity
== END 2018-05-15 13:41 | disposition home or self-care (01) ==
LOC: JERFT 12:36
DX: M54.2 Cervicalgia (principal); M62.838 Other muscle spasm; W18.39XA Other fall on same level, initial encounter; Y93.89 Activity, other specified; Y92.89 Other specified places as the place of occurrence of the external cause; F17.210 Nicotine dependence, cigarettes, uncomplicated; E78.00 Pure hypercholesterolemia, unspecified; I10 Essential (primary) hypertension
CPT/HCPCS: 99281-25

== ENCOUNTER 2020-11-13 06:31 | Inpatient (IN) | payer OTHER ==
[2020-11-13] MEDS ORDERED: SODIUM CHLORIDE 1,000 ML IV STA (07:38)
[2020-11-13] MEDS ORDERED: FAMOTIDINE 20 MG/50 ML IVPB 20 MG/50 ML MG IVPB ONE ×2 (07:39→07:44)
[2020-11-13] MEDS ORDERED: morphine CARPU-JECT 4 MG/1 ML DISP.SYRIN IVPUSH ONE (07:39)
[2020-11-13] MEDS ORDERED: ONDANSETRON 4 MG/2 ML VIAL IVPUSH ONE (07:39)
[2020-11-13] MEDS ORDERED: morphine SULFATE 4 MG/ML VIAL ONE ×3 (07:44→17:15)
[2020-11-13] MEDS ORDERED: ONDANSETRON 4 MG/2 ML VIAL ONE (07:44)
[2020-11-13 08:15] LABS: URINE APPEARANCE CLEAR; URINE BILIRUBIN NEGATIVE (NEGATIVE); URINE COLOR YELLOW; URINE GLUCOSE (UA) NEGATIVE (NEGATIVE); URINE KETONE NEGATIVE (NEGATIVE); URINE LEUK ESTERASE NEGATIVE (NEGATIVE); URINE NITRITE NEGATIVE (NEGATIVE); URINE PROTEIN NEGATIVE (NEGATIVE); URINE UROBILINOGEN 0.2 mg/dL (0.2-1.0)
[2020-11-13 08:21] LABS: INR 0.95 (0.83-1.09); PROTHROMBIN TIME (PATIENT) 11.7 SEC (9.7-13.0)
[2020-11-13 08:36] LABS: ALBUMIN 3.8 g/dl (3.4-5.0); BLOOD UREA NITROGEN 19.1 mg/dL (7-18); CALCIUM 8.5 mg/dL (8.5-10.1)
[2020-11-13 08:39] LABS: CREATININE 0.8 mg/dL (0.55-1.3)
[2020-11-13 08:41] LABS: BILIRUBIN,TOTAL 0.6 mg/dL (0.2-1); TOT PROT 8.1 g/dl (6.4-8.2)
[2020-11-13 09:31] LABS: EOS % 1.8 % (0-4.5); HEMATOCRIT 40.3 % (32.4-45.2); HEMOGLOBIN 13.5 GM/dL (10.7-15.3); LYMPH % 36.1 % (8-40); MCH 30.3 pg (25.7-33.7); MCHC 33.5 g/dl (32.0-36.0); MEAN CELL VOLUME 90.5 fl (80-96); MONO % 7.1 % (3.8-10.2); PLATELET COUNT 282 10^3/uL (134-434); RBC 4.45 M/mm3 (3.60-5.2); RDW 14.1 % (11.6-15.6); WHITE BLOOD COUNT 5.9 K/mm3 (4.0-10.0)
[2020-11-13] MEDS ORDERED: LACTATED RINGERS SOLUTION 1,000 ML/1,000 ML INFUS.BAG IV STA (10:06)
[2020-11-13] MEDS ORDERED: HYDROmorphone HCL CARPU-JECT 2 MG/1 ML DISP.SYRIN IVPB ONE (10:06)
[2020-11-13] MEDS ORDERED: HYDROmorphone HCl 2 MG/ML VIAL ONE (10:08)
[2020-11-13] MEDS ORDERED: morphine SULFATE 4 MG/ML VIAL IVPUSH ONE (15:50)
[2020-11-13] MEDS ORDERED: MORPHINE SULFATE 2 MG/ML VIAL IVPUSH PRN (17:25)
[2020-11-13] MEDS ORDERED: ONDANSETRON 4 MG/2 ML VIAL IVPUSH PRN (17:28)
[2020-11-13] MEDS ORDERED: ACETAMINOPHEN 1000 MG/100 ML VIAL (NON FORMULARY) IVPB PRN (17:29)
[2020-11-13] MEDS ORDERED: LIP BALM (CHAPSTICK) TP PRN ×3 (17:43→18:00)
[2020-11-13] MEDS: LACTATED RINGERS SOLUTION 1,000 ML IV SCH (17:58)
[2020-11-13] MEDS ORDERED: MORPHINE SULFATE 2 MG/ML VIAL ONE (23:01)
[2020-11-14 05:03] VITALS: BMI 32.0
[2020-11-14 07:53] LABS: BASO % 1.7 % (0-2.0); EOS % 1.4 % (0-4.5); HEMATOCRIT 38.3 % (32.4-45.2); HEMOGLOBIN 12.8 GM/dL (10.7-15.3); LYMPH % 39.3 % (8-40); MCH 30.3 pg (25.7-33.7); MCHC 33.5 g/dl (32.0-36.0); MEAN CELL VOLUME 90.5 fl (80-96); MONO % 6.5 % (3.8-10.2); NEUT % 51.1 % (42.8-82.8); PLATELET COUNT 246 10^3/uL (134-434); RBC 4.23 M/mm3 (3.60-5.2); RDW 13.5 % (11.6-15.6); WHITE BLOOD COUNT 5.3 K/mm3 (4.0-10.0)
[2020-11-14 08:16] LABS: ALBUMIN 3.4 g/dl (3.4-5.0); CALCIUM 8.7 mg/dL (8.5-10.1); MAGNESIUM 2.2 mg/dL (1.8-2.4)
[2020-11-14 08:19] LABS: CREATININE 0.7 mg/dL (0.55-1.3)
[2020-11-14 08:21] LABS: BILIRUBIN,TOTAL 0.6 mg/dL (0.2-1)
[2020-11-14 08:24] LABS: TOT PROT 7.2 g/dl (6.4-8.2)
[2020-11-14] MEDS ORDERED: MEPERIDINE HCL 25 MG/ML VIAL IVPUSH ONE (08:45)
[2020-11-14] MEDS ORDERED: MEPERIDINE HCL 25 MG/ML VIAL IVPB ONE (09:00)
[2020-11-14] MEDS ORDERED: ENOXAPARIN NA (PORCINE) 40 MG/0.4 ML DISP.SYRIN SQ SCH (10:00)
[2020-11-14] MEDS: LACTATED RINGERS SOLUTION 1,000 ML IV SCH (10:23)
[2020-11-14] MEDS ORDERED: amLODIPine BESYLATE 5 MG TABLET (FP) PO ONE (10:30)
[2020-11-14] MEDS ORDERED: LOSARTAN POTASSIUM 50 MG TABLET PO SCH (12:00)
[2020-11-14] MEDS ORDERED: NIFEdipine E.R. 90 MG TABLET PO SCH (12:00)
[2020-11-14] MEDS ORDERED: HYDROCHLOROTHIAZIDE 12.5 MG CAPSULE (FP) PO SCH (12:00)
[2020-11-14] MEDS ORDERED: hydrALAZINE HCL 10 MG TABLET PO ONE (14:32)
[2020-11-14] MEDS ORDERED: ATORVASTATIN CA 10 MG TABLET (FP) PO SCH (22:00)
[2020-11-14] MEDS ORDERED: ACETAMINOPHEN 500 MG TABLET (FP) PO PRN (22:28)
[2020-11-15 06:35] VITALS: BP 133/92; PULSE 57; TEMP 98.5
== END 2020-11-15 07:58 | disposition left against medical advice (07) | DRG 199 ==
LOC: JER 06:31 → JERBED 15:16 → OBSVTOIN 17:25 → J7W 11-14 03:33 → J4W 11-14 15:31
PROVIDERS: ATTEND Internal Medicine
DX: I16.0 Hypertensive urgency (principal); R10.9 Unspecified abdominal pain; E78.5 Hyperlipidemia, unspecified
CPT/HCPCS: 36415; 74177-TC; 76705-TC; 80053; 80061; 81003; 82550; 82962; 83036; 83690; 83721; 83735; 84436; 84443; 84484; 85025; 85610; 93005; 93010; 93306-TC; 99285-25; C9803; G0378; J0131; Q9967; U0003; U0005

== ENCOUNTER 2020-11-15 08:46 | Inpatient (IN) | payer OTHER ==
[2020-11-15 09:01] VITALS: BMI 32.0
[2020-11-15] MEDS ORDERED: ONDANSETRON 4 MG/2 ML VIAL IVPUSH ONE (10:42)
[2020-11-15] MEDS ORDERED: ONDANSETRON 4 MG/2 ML VIAL ONE (10:50)
[2020-11-15] MEDS ORDERED: FAMOTIDINE 20 MG/50 ML IVPB 20 MG/50 ML MG IVPB ONE ×2 (10:54→10:55)
[2020-11-15] MEDS ORDERED: morphine CARPU-JECT 2 MG/1 ML DISP.SYRIN IVPUSH ONE (10:54)
[2020-11-15] MEDS ORDERED: MORPHINE SULFATE 2 MG/ML VIAL ONE (10:55)
[2020-11-15 11:13] LABS: COCAINE, UR NEGATIVE (NEGATIVE); METHADONE, UR NEGATIVE (NEGATIVE); URINE BARBITURATES NEGATIVE (NEGATIVE); URINE BENZODIAZEPINES NEGATIVE (NEGATIVE)
[2020-11-15 11:14] LABS: PHENCYCLIDINE,URINE NEGATIVE (NEGATIVE)
[2020-11-15 11:16] LABS: OPIATES, URI POSITIVE (NEGATIVE); URINE AMPHETAMINES NEGATIVE (NEGATIVE)
[2020-11-15 12:08] LABS: BILIRUBIN,DIRECT 0.1 mg/dL (0.0-0.2)
[2020-11-15 12:10] LABS: BILIRUBIN,TOTAL 0.4 mg/dL (0.2-1)
[2020-11-15 12:11] LABS: ALBUMIN 4.6 g/dl (3.4-5.0); TOT PROT 9.5 g/dl (6.4-8.2)
[2020-11-15] MEDS ORDERED: HYDROCHLOROTHIAZIDE 25 MG TABLET (FP) ONE (12:38)
[2020-11-15] MEDS ORDERED: NIFEdipine E.R. 30 MG TABLET ONE (12:38)
[2020-11-15] MEDS ORDERED: LOSARTAN POTASSIUM 50 MG TABLET ONE (12:38)
[2020-11-15] MEDS: NIFEdipine E.R 60 MG TABLET PO SCH (12:45)
[2020-11-15] MEDS: HYDROCHLOROTHIAZIDE 12.5 MG CAPSULE (FP) PO SCH (12:45)
[2020-11-15] MEDS: LOSARTAN POTASSIUM 50 MG TABLET PO SCH (12:45)
[2020-11-15] MEDS ORDERED: NITROGLYCERIN 2% OINTMENT - 1GM PACKET TD ONE (13:10)
[2020-11-15] MEDS: PANTOPRAZOLE 40 MG TABLET PO SCH (13:16)
[2020-11-15] MEDS: NITROGLYCERIN 2% OINTMENT - 1GM PACKET TD SCH ×2 (13:16→18:34)
[2020-11-15] MEDS ORDERED: LABETALOL HCL 5 MG/1 ML (100MG/20 ML VIAL) IVPUSH ONE ×2 (14:00→20:43)
[2020-11-15] MEDS ORDERED: LORazepam 2 MG/ML SDV VIAL IVPUSH ONE (14:39)
[2020-11-15] MEDS ORDERED: ONDANSETRON 4 MG/2 ML VIAL IVPUSH PRN ×2 (15:35→15:40)
[2020-11-15] MEDS: MORPHINE SULFATE 2 MG/ML VIAL IVPUSH PRN (18:16)
[2020-11-15] MEDS: SODIUM CHLORIDE 1,000 ML IV SCH (18:47)
[2020-11-15 19:38] LABS: CHLORIDE 108 mmol/L (98-107); SODIUM 140 mmol/L (136-145)
[2020-11-15 19:40] LABS: BLOOD UREA NITROGEN 25.4 mg/dL (7-18)
[2020-11-15 19:41] LABS: ANION GAP 14 MMOL/L (8-16); CALCIUM 9.8 mg/dL (8.5-10.1); CO2 18 mmol/L (21-32); GLUCOSE,RANDOM 136 mg/dL (74-106); MAGNESIUM 2.8 mg/dL (1.8-2.4)
[2020-11-15 19:43] LABS: CREATININE 1.3 mg/dL (0.55-1.3)
[2020-11-15 19:44] LABS: PHOSPHOROUS 4.9 mg/dL (2.5-4.9)
[2020-11-15] MEDS ORDERED: ACETAMINOPHEN 1000 MG/100 ML VIAL (NON FORMULARY) IVPB ONE (21:23)
[2020-11-15] MEDS: ATORVASTATIN CA 40 MG TABLET (FP) PO SCH (22:41)
[2020-11-16] MEDS: NITROGLYCERIN 2% OINTMENT - 1GM PACKET TD SCH ×4 (05:14→18:18)
[2020-11-16] MEDS: MORPHINE SULFATE 2 MG/ML VIAL IVPUSH PRN ×4 (05:15→22:24)
[2020-11-16] MEDS ORDERED: PT OWN MED DRAWER 7, Y5N ONE (09:05)
[2020-11-16] MEDS ORDERED: LABETALOL HCL 5 MG/1 ML (100MG/20 ML VIAL) IVPUSH PRN (09:52)
[2020-11-16] MEDS: PANTOPRAZOLE 40 MG TABLET PO SCH (09:52)
[2020-11-16] MEDS: ENOXAPARIN NA (PORCINE) 40 MG/0.4 ML DISP.SYRIN SQ SCH (09:52)
[2020-11-16] MEDS: METOCLOPRAMIDE HCL 10 MG TABLET (FP) PO SCH ×2 (12:34→17:02)
[2020-11-16] MEDS: SODIUM CHLORIDE 1,000 ML IV SCH (15:18)
[2020-11-16 17:15] LABS: BASO % 0.8 % (0-2.0); EOS % 0.1 % (0-4.5); HEMATOCRIT 39.7 % (32.4-45.2); HEMOGLOBIN 13.3 GM/dL (10.7-15.3); LYMPH % 17.8 % (8-40); MCH 30.3 pg (25.7-33.7); MCHC 33.6 g/dl (32.0-36.0); MEAN CELL VOLUME 90.2 fl (80-96); MEAN PLT VOLUME 9.3 fl (7.5-11.1); MONO % 6.9 % (3.8-10.2); NEUT % 74.4 % (42.8-82.8); PLATELET COUNT 130 10^3/uL (134-434); RDW 13.9 % (11.6-15.6); WHITE BLOOD COUNT 11.2 K/mm3 (4.0-10.0)
[2020-11-16 17:33] LABS: CALCIUM 8.6 mg/dL (8.5-10.1)
[2020-11-16 17:34] LABS: ALBUMIN 3.7 g/dl (3.4-5.0); BLOOD UREA NITROGEN 41.1 mg/dL (7-18); MAGNESIUM 2.7 mg/dL (1.8-2.4)
[2020-11-16 17:37] LABS: CREATININE 1.5 mg/dL (0.55-1.3); PHOSPHOROUS 4.2 mg/dL (2.5-4.9)
[2020-11-16 17:38] LABS: BILIRUBIN,TOTAL 0.4 mg/dL (0.2-1)
[2020-11-16 18:17] LABS: TOT PROT 7.4 g/dl (6.4-8.2)
[2020-11-16] MEDS: NIFEdipine E.R 60 MG TABLET PO SCH (22:24)
[2020-11-16] MEDS: ATORVASTATIN CA 40 MG TABLET (FP) PO SCH (22:24)
[2020-11-17] MEDS: MORPHINE SULFATE 2 MG/ML VIAL IVPUSH PRN ×2 (05:58→10:34)
[2020-11-17] MEDS: NITROGLYCERIN 2% OINTMENT - 1GM PACKET TD SCH ×2 (06:00→11:42)
[2020-11-17] MEDS: METOCLOPRAMIDE HCL 10 MG TABLET (FP) PO SCH ×3 (06:00→17:14)
[2020-11-17 08:09] LABS: BASO % 0.7 % (0-2.0); EOS % 0.2 % (0-4.5); HEMATOCRIT 41.9 % (32.4-45.2); HEMOGLOBIN 13.7 GM/dL (10.7-15.3); LYMPH % 25.2 % (8-40); MCH 29.8 pg (25.7-33.7); MCHC 32.8 g/dl (32.0-36.0); MEAN CELL VOLUME 90.8 fl (80-96); MEAN PLT VOLUME 9.9 fl (7.5-11.1); MONO % 4.7 % (3.8-10.2); NEUT % 69.2 % (42.8-82.8); PLATELET COUNT 275 10^3/uL (134-434); RBC 4.61 M/mm3 (3.60-5.2); RDW 13.5 % (11.6-15.6); WHITE BLOOD COUNT 9.6 K/mm3 (4.0-10.0)
[2020-11-17 08:26] LABS: CALCIUM 8.4 mg/dL (8.5-10.1)
[2020-11-17 08:27] LABS: ALBUMIN 3.8 g/dl (3.4-5.0)
[2020-11-17 08:31] LABS: BILIRUBIN,TOTAL 0.6 mg/dL (0.2-1); TOT PROT 8.2 g/dl (6.4-8.2)
[2020-11-17] MEDS: NIFEdipine E.R 60 MG TABLET PO SCH ×2 (10:25→21:05)
[2020-11-17] MEDS: HYDROCHLOROTHIAZIDE 12.5 MG CAPSULE (FP) PO SCH (10:26)
[2020-11-17] MEDS: LOSARTAN POTASSIUM 50 MG TABLET PO SCH (10:26)
[2020-11-17] MEDS: PANTOPRAZOLE 40 MG TABLET PO SCH (10:26)
[2020-11-17] MEDS: ENOXAPARIN NA (PORCINE) 40 MG/0.4 ML DISP.SYRIN SQ SCH (10:30)
[2020-11-17] MEDS ORDERED: ACETAMINOPHEN 325 MG TABLET (FP) PO PRN (17:18)
[2020-11-17] MEDS: ATORVASTATIN CA 40 MG TABLET (FP) PO SCH (21:05)
[2020-11-18] MEDS: METOCLOPRAMIDE HCL 10 MG TABLET (FP) PO SCH ×3 (06:02→16:58)
[2020-11-18] MEDS: PANTOPRAZOLE 40 MG TABLET PO SCH (10:03)
[2020-11-18] MEDS: LOSARTAN POTASSIUM 50 MG TABLET PO SCH (10:03)
[2020-11-18] MEDS: HYDROCHLOROTHIAZIDE 12.5 MG CAPSULE (FP) PO SCH (10:04)
[2020-11-18] MEDS: ENOXAPARIN NA (PORCINE) 40 MG/0.4 ML DISP.SYRIN SQ SCH ×2 (10:04→10:08)
[2020-11-18] MEDS: NIFEdipine E.R 60 MG TABLET PO SCH ×2 (10:04→21:15)
[2020-11-18] MEDS: ATORVASTATIN CA 40 MG TABLET (FP) PO SCH (21:16)
[2020-11-19] MEDS: METOCLOPRAMIDE HCL 10 MG TABLET (FP) PO SCH ×2 (06:00→10:00)
[2020-11-19 09:25] LABS: BASO % 0.6 % (0-2.0); EOS % 0.5 % (0-4.5); HEMATOCRIT 44.5 % (32.4-45.2); HEMOGLOBIN 14.8 GM/dL (10.7-15.3); LYMPH % 39.3 % (8-40); MCHC 33.2 g/dl (32.0-36.0); MEAN CELL VOLUME 90.2 fl (80-96); MONO % 7.4 % (3.8-10.2); NEUT % 52.2 % (42.8-82.8); PLATELET COUNT 298 10^3/uL (134-434); RBC 4.93 M/mm3 (3.60-5.2); RDW 13.5 % (11.6-15.6); WHITE BLOOD COUNT 7.2 K/mm3 (4.0-10.0)
[2020-11-19] MEDS: PANTOPRAZOLE 40 MG TABLET PO SCH (10:00)
[2020-11-19] MEDS: NIFEdipine E.R 60 MG TABLET PO SCH (10:01)
[2020-11-19] MEDS: HYDROCHLOROTHIAZIDE 12.5 MG CAPSULE (FP) PO SCH (10:01)
[2020-11-19 10:02] LABS: ALBUMIN 3.9 g/dl (3.4-5.0)
[2020-11-19] MEDS: ENOXAPARIN NA (PORCINE) 40 MG/0.4 ML DISP.SYRIN SQ SCH (10:02)
[2020-11-19] MEDS: LOSARTAN POTASSIUM 50 MG TABLET PO SCH (10:02)
[2020-11-19 10:05] LABS: CALCIUM 8.9 mg/dL (8.5-10.1); MAGNESIUM 2.6 mg/dL (1.8-2.4)
[2020-11-19 10:06] LABS: BLOOD UREA NITROGEN 26.1 mg/dL (7-18); CREATININE 1.1 mg/dL (0.55-1.3)
[2020-11-19 10:07] LABS: BILIRUBIN,TOTAL 0.7 mg/dL (0.2-1)
[2020-11-19 10:08] LABS: TOT PROT 8.1 g/dl (6.4-8.2)
[2020-11-19 10:09] LABS: PHOSPHOROUS 4.3 mg/dL (2.5-4.9)
[2020-11-19 14:00] VITALS: BP 128/71; PULSE 79; TEMP 97.3
[2020-11-20 06:06] LABS: RENIN ACTIVITY(PRA) 0.446 ng/mL/hr (0.167-5.380)
== END 2020-11-19 17:20 | disposition home or self-care (01) | DRG 199 ==
LOC: JER 08:46 → JERBED 09:43 → J4W 13:37
PROVIDERS: ATTEND Internal Medicine
DX: I16.0 Hypertensive urgency (principal); E78.5 Hyperlipidemia, unspecified; K44.9 Diaphragmatic hernia without obstruction or gangrene; D35.00 Benign neoplasm of unspecified adrenal gland; F17.210 Nicotine dependence, cigarettes, uncomplicated; N17.9 Acute kidney failure, unspecified; I47.2 Ventricular tachycardia; E87.6 Hypokalemia; E66.9 Obesity, unspecified; Z68.32 Body mass index [BMI] 32.0-32.9, adult
CPT/HCPCS: 36415; 70450-TC; 71045-TC-FY; 80048; 80053; 80076; 80307; 82088; 82533; 82550; 82553; 82962; 83735; 83970; 84100; 84244; 84443; 84484; 85025; 93005; 93010; 99285-25; J0131

== ENCOUNTER 2021-01-20 12:45 | Emergency (ER) | payer OTHER ==
[2021-01-20 13:26] VITALS: BP 147/90; PULSE 82; TEMP 98; BMI 32.9
== END 2021-01-20 14:31 | disposition home or self-care (01) ==
LOC: JERFT 12:45
DX: M79.604 Pain in right leg (principal)
CPT/HCPCS: 99282-25

== ENCOUNTER 2021-02-26 00:10 | Observation (INO) | payer OTHER ==
[2021-02-26 00:26] VITALS: BMI 30.5
[2021-02-26] MEDS ORDERED: ONDANSETRON 4 MG/2 ML VIAL IVPUSH ONE (00:56)
[2021-02-26] MEDS ORDERED: FAMOTIDINE 20 MG/50 ML IVPB 20 MG/50 ML MG IVPB ONE ×2 (00:56→01:12)
[2021-02-26] MEDS ORDERED: MAG HYDROX/AL HYDROX/SIMETH 30 ML UNIT-DOSE CUP PO ONE (00:56)
[2021-02-26] MEDS ORDERED: ONDANSETRON 4 MG/2 ML VIAL ONE (01:12)
[2021-02-26] MEDS ORDERED: MAG HYDROX/AL HYDROX/SIMETH 30 ML UNIT-DOSE CUP ONE (01:12)
[2021-02-26] MEDS ORDERED: ACETAMINOPHEN 1000 MG/100 ML VIAL IVPB ONE (01:14)
[2021-02-26] MEDS ORDERED: SODIUM CHLORIDE 1,000 ML IV STA (01:22)
[2021-02-26] MEDS ORDERED: ACETAMINOPHEN INJECTION 100 ML IVPB ONE (02:04)
[2021-02-26 02:13] LABS: BASO % 1.1 % (0-2.0); EOS % 1.4 % (0-4.5); HEMOGLOBIN 11.9 GM/dL (10.7-15.3); LYMPH % 30.3 % (8-40); MCH 30.9 pg (25.7-33.7); MEAN CELL VOLUME 90.9 fl (80-96); MEAN PLT VOLUME 8.6 fl (7.5-11.1); MONO % 5.9 % (3.8-10.2); NEUT % 61.3 % (42.8-82.8); PLATELET COUNT 287 10^3/uL (134-434); RBC 3.85 M/mm3 (3.60-5.2); RDW 13.8 % (11.6-15.6); WHITE BLOOD COUNT 6.8 K/mm3 (4.0-10.0)
[2021-02-26 02:19] LABS: PH,URINE 5.5 (5.0-8.0); URINE APPEARANCE CLEAR; URINE BILIRUBIN NEGATIVE (NEGATIVE); URINE COLOR YELLOW; URINE GLUCOSE (UA) NEGATIVE (NEGATIVE); URINE KETONE NEGATIVE (NEGATIVE); URINE LEUK ESTERASE NEGATIVE (NEGATIVE); URINE NITRITE NEGATIVE (NEGATIVE); URINE PROTEIN NEGATIVE (NEGATIVE); URINE UROBILINOGEN 0.2 mg/dL (0.2-1.0)
[2021-02-26 02:35] LABS: PROTHROMBIN TIME (PATIENT) 11.2 SEC (9.7-13.0)
[2021-02-26 02:38] LABS: ACTIVATED PTT 28.3 SECONDS (25.2-36.5)
[2021-02-26 02:41] LABS: CHLORIDE 107 mmol/L (98-107); SODIUM 142 mmol/L (136-145)
[2021-02-26 02:43] LABS: CALCIUM 8.9 mg/dL (8.5-10.1)
[2021-02-26 02:44] LABS: ALBUMIN 3.1 g/dl (3.4-5.0); ANION GAP 8 MMOL/L (8-16); BLOOD UREA NITROGEN 20.4 mg/dL (7-18); CO2 27 mmol/L (21-32); GLUCOSE,RANDOM 104 mg/dL (74-106); LIPASE 130 U/L (73-393)
[2021-02-26 02:47] LABS: SGOT/AST 13 U/L (15-37); SGPT/ALT 22 U/L (13-61)
[2021-02-26 02:48] LABS: BILIRUBIN,TOTAL 0.2 mg/dL (0.2-1); TOT PROT 7.4 g/dl (6.4-8.2)
[2021-02-26 02:49] LABS: ALK PHOS 82 U/L (45-117)
[2021-02-26] MEDS ORDERED: METOCLOPRAMIDE HCL INJECTION 10 MG/2 ML VIAL IVPUSH ONE (03:33)
[2021-02-26] MEDS ORDERED: LORazepam 2 MG/ML SDV VIAL IVPUSH ONE (03:33)
[2021-02-26] MEDS ORDERED: METOCLOPRAMIDE HCL INJECTION 10 MG/2 ML VIAL ONE (03:37)
[2021-02-26] MEDS ORDERED: LORazepam 2 MG/ML SDV VIAL ONE (03:38)
[2021-02-26] MEDS ORDERED: MAG HYDROX/AL HYDROX/SIMETH 30 ML UNIT-DOSE CUP PO PRN (05:03)
[2021-02-26] MEDS ORDERED: ACETAMINOPHEN 1000 MG/100 ML VIAL IVPB PRN (05:27)
[2021-02-26] MEDS ORDERED: SODIUM CHLORIDE 1,000 ML IV SCH (09:00)
[2021-02-26 09:18] LABS: TRIGLYCERIDES 126 mg/dL (0-150)
[2021-02-26] MEDS ORDERED: POLYETHYLENE GLYCOL (HEALTHYLAX) 3350 17 GM PACKET ONE (09:43)
[2021-02-26] MEDS ORDERED: PANTOPRAZOLE 40 MG TABLET ONE (09:43)
[2021-02-26] MEDS ORDERED: LOSARTAN POTASSIUM 50 MG TABLET ONE (09:44)
[2021-02-26] MEDS ORDERED: PANTOPRAZOLE 40 MG TABLET PO SCH ×2 (10:00)
[2021-02-26] MEDS ORDERED: NIFEdipine E.R 60 MG TABLET PO SCH (10:00)
[2021-02-26] MEDS ORDERED: POLYETHYLENE GLYCOL (HEALTHYLAX) 3350 17 GM PACKET PO SCH (10:00)
[2021-02-26] MEDS ORDERED: HYDROCHLOROTHIAZIDE 12.5 MG CAPSULE (FP) PO SCH (10:00)
[2021-02-26] MEDS ORDERED: LOSARTAN POTASSIUM 50 MG TABLET PO SCH (10:00)
[2021-02-26 11:26] LABS: HEMATOCRIT 35.1 % (32.4-45.2); HEMOGLOBIN 12.1 GM/dL (10.7-15.3); MCH 31.4 pg (25.7-33.7); MCHC 34.5 g/dl (32.0-36.0); MEAN PLT VOLUME 8.3 fl (7.5-11.1); PLATELET COUNT 260 10^3/uL (134-434); RBC 3.85 M/mm3 (3.60-5.2)
[2021-02-26 12:40] LABS: BLOOD UREA NITROGEN 14.2 mg/dL (7-18); CALCIUM 8.8 mg/dL (8.5-10.1); MAGNESIUM 2.4 mg/dL (1.8-2.4)
[2021-02-26 12:43] LABS: CREATININE 0.9 mg/dL (0.55-1.3)
[2021-02-26 12:45] LABS: BILIRUBIN,TOTAL 0.3 mg/dL (0.2-1); TOT PROT 6.9 g/dl (6.4-8.2)
[2021-02-26 13:21] VITALS: BP 152/87; PULSE 82; TEMP 98.6
[2021-02-26] MEDS ORDERED: ATORVASTATIN CA 40 MG TABLET (FP) PO SCH (22:00)
== END 2021-02-26 13:24 | disposition home or self-care (01) ==
LOC: JER 00:10 → JERBED 04:29 → INTOOBSV 04:29
PROVIDERS: ADMIT Internal Medicine; ATTEND Nurse Practitioner Acute Care
PROC: 3E033GC Introduction of Other Therapeutic Substance into Peripheral Vein, Percutaneous Approach (ICD-10-PCS; principal; 2021-02-26)
PROC: 3E033NZ Introduction of Analgesics, Hypnotics, Sedatives into Peripheral Vein, Percutaneous Approach (ICD-10-PCS; 2021-02-26)
PROC: 3E033GC Introduction of Other Therapeutic Substance into Peripheral Vein, Percutaneous Approach (ICD-10-PCS; 2021-02-26)
PROC: 3E0337Z Introduction of Electrolytic and Water Balance Substance into Peripheral Vein, Percutaneous Approach (ICD-10-PCS; 2021-02-26)
DX: R10.13 Epigastric pain (principal); E27.9 Disorder of adrenal gland, unspecified; I10 Essential (primary) hypertension; K29.70 Gastritis, unspecified, without bleeding; M25.50 Pain in unspecified joint; F12.10 Cannabis abuse, uncomplicated; E66.8 Other obesity; Z68.30 Body mass index [BMI] 30.0-30.9, adult; Z88.8 Allergy status to other drugs, medicaments and biological substances; Z88.6 Allergy status to analgesic agent
CPT/HCPCS: 36415; 71045-TC-FY; 74177-TC; 80053; 81003; 82550; 83690; 83735; 84100; 84478; 84484; 85025; 85027; 85610; 85730; 87086; 93005; 93010; 96361; 96365; 96375; 99285-25; C9803; G0378; J0131; U0003; U0005

== ENCOUNTER 2021-04-25 04:57 | Day surgery (SDC) | payer OTHER ==
[2021-04-25 11:35] VITALS: BMI 31.8
[2021-04-25 13:59] VITALS: BP 156/78; PULSE 69; TEMP 98.7
== END 2021-04-25 14:20 | disposition home or self-care (01) ==
LOC: JASU-SURG 04:57
PROVIDERS: ATTEND Pain Medicine Pain Medicine
PROC: 3E0T3BZ Introduction of Anesthetic Agent into Peripheral Nerves and Plexi, Percutaneous Approach (ICD-10-PCS; principal; 2021-04-25)
PROC: 3E0T33Z Introduction of Anti-inflammatory into Peripheral Nerves and Plexi, Percutaneous Approach (ICD-10-PCS; 2021-04-25)
DX: M47.812 Spondylosis without myelopathy or radiculopathy, cervical region (principal)
CPT/HCPCS: 76000-TC-FY; J1100

== ENCOUNTER 2021-05-13 04:34 | Day surgery (SDC) | payer OTHER ==
[2021-05-12 11:06] VITALS: BMI 32.1
[2021-05-13 12:04] VITALS: BP 137/71; PULSE 66
[2021-05-13 12:56] VITALS: TEMP 97.5
== END 2021-05-13 13:05 | disposition home or self-care (01) ==
LOC: JASU-ENDO 04:34
PROVIDERS: ATTEND Internal Medicine Gastroenterology
PROC: 0DB68ZX Excision of Stomach, Via Natural or Artificial Opening Endoscopic, Diagnostic (ICD-10-PCS; 2021-05-13)
PROC: 0DB98ZX Excision of Duodenum, Via Natural or Artificial Opening Endoscopic, Diagnostic (ICD-10-PCS; principal; 2021-05-13 09:50)
DX: K29.50 Unspecified chronic gastritis without bleeding (principal); K44.9 Diaphragmatic hernia without obstruction or gangrene; K31.7 Polyp of stomach and duodenum; K29.80 Duodenitis without bleeding
CPT/HCPCS: 88305-TC; 88342-TC

== ENCOUNTER 2021-07-03 10:13 | Emergency (ER) | payer OTHER ==
[2021-07-03 10:45] VITALS: BMI 30.5
[2021-07-03] MEDS ORDERED: ACETAMINOPHEN 1000 MG/100 ML BAG IVPB ONE (11:49)
[2021-07-03] MEDS ORDERED: LIDOCAINE 5% TOPICAL PATCH TP ONE (11:49)
[2021-07-03] MEDS ORDERED: CYCLOBENZAPRINE HCL 10 MG TABLET (FP) PO ONE (11:49)
[2021-07-03] MEDS ORDERED: SODIUM CHLORIDE 1,000 ML IV STA (11:49)
[2021-07-03] MEDS ORDERED: CYCLOBENZAPRINE HCL 10 MG TABLET (FP) ONE (12:03)
[2021-07-03] MEDS ORDERED: ACETAMINOPHEN INJECTION 100 ML IVPB ONE (12:04)
[2021-07-03] MEDS ORDERED: LIDOCAINE 5% TOPICAL PATCH ONE (12:04)
[2021-07-03] MEDS ORDERED: ACETAMINOPHEN 325 MG TABLET (FP) PO ONE (12:30)
[2021-07-03] MEDS ORDERED: ACETAMINOPHEN 500 MG TABLET (FP) ONE (12:31)
[2021-07-03 12:32] LABS: URINE APPEARANCE TURBID; URINE BILIRUBIN NEGATIVE (NEGATIVE); URINE COLOR DK YELLOW; URINE GLUCOSE (UA) NEGATIVE (NEGATIVE); URINE KETONE TRACE (NEGATIVE); URINE LEUK ESTERASE NEGATIVE (NEGATIVE); URINE NITRITE NEGATIVE (NEGATIVE); URINE PROTEIN TRACE (NEGATIVE)
[2021-07-03 12:41] LABS: HEMATOCRIT 40.9 % (32.4-45.2); HEMOGLOBIN 13.8 GM/dL (10.7-15.3); MCH 30.4 pg (25.7-33.7); MCHC 33.7 g/dl (32.0-36.0); MEAN CELL VOLUME 90.2 fl (80-96); RBC 4.54 M/mm3 (3.60-5.2); RDW 14.1 % (11.6-15.6)
[2021-07-03 12:42] LABS: MEAN PLT VOLUME 9.9 fl (7.5-11.1)
[2021-07-03 12:43] LABS: PLATELET COUNT 251 10^3/uL (134-434)
[2021-07-03 13:00] LABS: ALBUMIN 4.3 g/dl (3.4-5.0); BLOOD UREA NITROGEN 24.3 mg/dL (7-18); CALCIUM 9.9 mg/dL (8.5-10.1)
[2021-07-03 13:02] LABS: CREATININE 1.2 mg/dL (0.55-1.3)
[2021-07-03 13:05] LABS: BILIRUBIN,TOTAL 0.6 mg/dL (0.2-1); TOT PROT 8.8 g/dl (6.4-8.2)
[2021-07-03 13:48] LABS: ANISOCYTOSIS 0; HELMET CELLS 0; HOWELL-JOLLY BODIES 0; MACROCYTOSIS 0; OVALOCYTE 0; ROULEAU 0; SICKELED CELLS 0; TARGET CELLS 0; TEAR DROP CELLS 0; TOXIC GRANULATION 0
[2021-07-03 16:09] VITALS: BP 150/68; PULSE 88; TEMP 98.3
[2021-07-03] MEDS ORDERED: LIDOCAINE PATCH REMOVAL MC ONE (22:00)
== END 2021-07-03 16:09 | disposition home or self-care (01) ==
LOC: JER 10:13
DX: R10.9 Unspecified abdominal pain (principal)
CPT/HCPCS: 36415; 72100-TC-FY; 74176-TC; 80053; 81003; 85025; 87086; 99285-25

== ENCOUNTER 2021-10-09 14:06 | Emergency (ER) | payer OTHER ==
[2021-10-09 15:08] VITALS: TEMP 98.4; BMI 30.2
[2021-10-09] MEDS ORDERED: FAMOTIDINE 20 MG/50 ML IVPB 20 MG/50 ML MG IVPB ONE ×2 (16:38→16:47)
[2021-10-09] MEDS ORDERED: ACETAMINOPHEN 1000 MG/100 ML BAG IVPB ONE ×2 (16:38→23:37)
[2021-10-09] MEDS ORDERED: SODIUM CHLORIDE 0.9% 500 ML INFUS.BAG IV ONE (16:38)
[2021-10-09] MEDS ORDERED: ONDANSETRON 4 MG/2 ML VIAL IVPUSH ONE ×2 (16:38→20:09)
[2021-10-09] MEDS ORDERED: ONDANSETRON 4 MG/2 ML VIAL ONE ×2 (16:47→20:14)
[2021-10-09] MEDS ORDERED: ACETAMINOPHEN INJECTION 100 ML IVPB ONE (16:47)
[2021-10-09 17:31] LABS: BASO % 0.2 % (0-2.0); HEMATOCRIT 43.1 % (32.4-45.2); HEMOGLOBIN 14.6 GM/dL (10.7-15.3); LYMPH % 10.6 % (8-40); MCH 30.7 pg (25.7-33.7); MCHC 33.8 g/dl (32.0-36.0); MEAN CELL VOLUME 90.8 fl (80-96); MEAN PLT VOLUME 9.8 fl (7.5-11.1); MONO % 1.3 % (3.8-10.2); NEUT % 87.9 % (42.8-82.8); PLATELET COUNT 317 10^3/uL (134-434); RBC 4.74 M/mm3 (3.60-5.2); RDW 13.5 % (11.6-15.6); WHITE BLOOD COUNT 7.8 K/mm3 (4.0-10.0)
[2021-10-09 17:50] LABS: ALBUMIN 4.6 g/dl (3.4-5.0); BLOOD UREA NITROGEN 16.6 mg/dL (7-18); CALCIUM 10.2 mg/dL (8.5-10.1); MAGNESIUM 2.6 mg/dL (1.8-2.4)
[2021-10-09 17:55] LABS: BILIRUBIN,TOTAL 0.5 mg/dL (0.2-1); TOT PROT 9.5 g/dl (6.4-8.2)
[2021-10-09] MEDS ORDERED: morphine CARPU-JECT 2 MG/1 ML DISP.SYRIN IVPUSH ONE (20:09)
[2021-10-09] MEDS ORDERED: morphine SULFATE 4 MG/ML VIAL ONE (20:14)
[2021-10-09] MEDS ORDERED: SUCRALFATE 1 GM/10 ML UNIT DOSE CUPS PO ONE (22:12)
[2021-10-09] MEDS ORDERED: MAG HYDROX/AL HYDROX/SIMETH -MYLANTA- ORAL SUSPENSION PO ONE (22:12)
[2021-10-09] MEDS ORDERED: MAG HYDROX/AL HYDROX/SIMETH 30 ML UNIT-DOSE CUP ONE (22:18)
[2021-10-09 23:35] VITALS: BP 181/98; PULSE 77
[2021-10-10] MEDS ORDERED: ACETAMINOPHEN INJECTION 100 ML IVPB ONE (00:39)
== END 2021-10-10 02:11 | disposition home or self-care (01) ==
LOC: JER 14:06
PROC: 3E0333Z Introduction of Anti-inflammatory into Peripheral Vein, Percutaneous Approach (ICD-10-PCS; principal; 2021-10-09)
PROC: 3E0333Z Introduction of Anti-inflammatory into Peripheral Vein, Percutaneous Approach (ICD-10-PCS; 2021-10-09)
PROC: 3E033GC Introduction of Other Therapeutic Substance into Peripheral Vein, Percutaneous Approach (ICD-10-PCS; 2021-10-09)
PROC: 3E033NZ Introduction of Analgesics, Hypnotics, Sedatives into Peripheral Vein, Percutaneous Approach (ICD-10-PCS; 2021-10-09)
PROC: 3E033GC Introduction of Other Therapeutic Substance into Peripheral Vein, Percutaneous Approach (ICD-10-PCS; 2021-10-09)
PROC: 3E033GC Introduction of Other Therapeutic Substance into Peripheral Vein, Percutaneous Approach (ICD-10-PCS; 2021-10-09)
DX: R10.9 Unspecified abdominal pain (principal)
CPT/HCPCS: 36415; 71045-TC-FY; 74174-TC; 80053; 83690; 83735; 84484; 85025; 93005; 93010; 99285-25; Q9967

== ENCOUNTER 2022-01-22 10:28 | Emergency (ER) | payer OTHER ==
[2022-01-22 10:36] VITALS: BMI 29.9
[2022-01-22] MEDS ORDERED: diazePAM 5 MG TABLET PO ONE (11:31)
[2022-01-22] MEDS ORDERED: ACETAMINOPHEN 1000 MG/100 ML BAG IVPB ONE (11:32)
[2022-01-22] MEDS ORDERED: diazePAM 5 MG TABLET ONE (11:48)
[2022-01-22] MEDS ORDERED: ACETAMINOPHEN INJECTION 100 ML IVPB ONE (12:39)
[2022-01-22 12:44] LABS: EOS % 0.6 % (0-4.5); HEMATOCRIT 38.3 % (32.4-45.2); MCH 31.6 pg (25.7-33.7); MEAN CELL VOLUME 92.8 fl (80-96); MEAN PLT VOLUME 8.8 fl (7.5-11.1); MONO % 6.6 % (3.8-10.2); NEUT % 58.8 % (42.8-82.8); PLATELET COUNT 298 10^3/uL (134-434); RBC 4.13 M/mm3 (3.60-5.2); RDW 14.2 % (11.6-15.6); WHITE BLOOD COUNT 5.8 K/mm3 (4.0-10.0)
[2022-01-22 12:48] LABS: INR 1.1 (0.83-1.09); PROTHROMBIN TIME (PATIENT) 12.7 SEC (9.7-13.0)
[2022-01-22 13:03] LABS: CALCIUM 9.1 mg/dL (8.5-10.1)
[2022-01-22 13:04] LABS: BLOOD UREA NITROGEN 27.7 mg/dL (7-18)
[2022-01-22 13:07] LABS: CREATININE 1.4 mg/dL (0.55-1.3)
[2022-01-22 13:10] LABS: BILIRUBIN,TOTAL 0.6 mg/dL (0.2-1); TOT PROT 8.3 g/dl (6.4-8.2)
[2022-01-22] MEDS ORDERED: SODIUM CHLORIDE 0.9% 500 ML INFUS.BAG IV ONE (13:27)
[2022-01-22 19:00] VITALS: BP 128/79; PULSE 78; RESP 19; TEMP 98.6
== END 2022-01-22 19:00 | disposition home or self-care (01) ==
LOC: JERFT 10:28
PROC: 3E033GC Introduction of Other Therapeutic Substance into Peripheral Vein, Percutaneous Approach (ICD-10-PCS; principal; 2022-01-22)
DX: M54.6 Pain in thoracic spine (principal)
CPT/HCPCS: 0241U-QW; 36415; 71275-TC; 80053; 84484; 85025; 85610; 93005; 93010; 99285-25; Q9967

== ENCOUNTER 2022-05-19 05:57 | Observation (INO) | payer OTHER ==
[2022-05-19] MEDS ORDERED: MAG HYDROX/AL HYDROX/SIMETH 30 ML UNIT-DOSE CUP PO ONE (07:14)
[2022-05-19] MEDS ORDERED: PANTOPRAZOLE 40 MG TABLET PO ONE (07:14)
[2022-05-19] MEDS ORDERED: ONDANSETRON 4 MG/2 ML VIAL IVPUSH ONE (07:14)
[2022-05-19] MEDS ORDERED: SUCRALFATE 1 GM/10 ML UNIT DOSE CUPS PO ONE (07:14)
[2022-05-19] MEDS ORDERED: FAMOTIDINE 20 MG/50 ML IVPB 20 MG/50 ML MG IVPB ONE ×2 (07:14→07:38)
[2022-05-19] MEDS ORDERED: HYDROCHLOROTHIAZIDE 12.5 MG CAPSULE (FP) PO ONE (07:15)
[2022-05-19] MEDS ORDERED: LOSARTAN POTASSIUM 50 MG TABLET PO ONE (07:16)
[2022-05-19] MEDS ORDERED: PANTOPRAZOLE SODIUM 40 MG VIAL IVPUSH ONE (07:27)
[2022-05-19] MEDS ORDERED: PANTOPRAZOLE SODIUM 40 MG/100 ML BAG IVPB ONE (07:37)
[2022-05-19] MEDS ORDERED: ONDANSETRON 4 MG/2 ML VIAL ONE (07:38)
[2022-05-19 08:34] LABS: BASO % 0.7 % (0-2.0); EOS % 1.2 % (0-4.5); HEMATOCRIT 37.6 % (32.4-45.2); HEMOGLOBIN 12.3 GM/dL (10.7-15.3); LYMPH % 9.4 % (8-40); MCH 30.2 pg (25.7-33.7); MCHC 32.7 g/dl (32.0-36.0); MEAN CELL VOLUME 92.2 fl (80-96); MEAN PLT VOLUME 8.8 fl (7.5-11.1); NEUT % 79.7 % (42.8-82.8); PLATELET COUNT 296 10^3/uL (134-434); RBC 4.07 M/mm3 (3.60-5.2); RDW 13.3 % (11.6-15.6); WHITE BLOOD COUNT 7.8 K/mm3 (4.0-10.0)
[2022-05-19 08:55] LABS: ALBUMIN 3.8 g/dl (3.4-5.0); BLOOD UREA NITROGEN 16.8 mg/dL (7-18)
[2022-05-19 08:58] LABS: CREATININE 0.9 mg/dL (0.55-1.3)
[2022-05-19 08:59] LABS: BILIRUBIN,TOTAL 0.2 mg/dL (0.2-1); TOT PROT 7.9 g/dl (6.4-8.2)
[2022-05-19 09:00] LABS: ACTIVATED PTT 28.7 SECONDS (25.2-36.5); INR 1.01 (0.83-1.09); PROTHROMBIN TIME (PATIENT) 11.6 SEC (9.7-13.0)
[2022-05-19] MEDS ORDERED: HYDROCHLOROTHIAZIDE 25 MG TABLET (FP) ONE (09:47)
[2022-05-19] MEDS ORDERED: LOSARTAN POTASSIUM 50 MG TABLET ONE (09:47)
[2022-05-19] MEDS ORDERED: LOPERAMIDE HCL 2 MG CAPSULE PO ONE (11:45)
[2022-05-19] MEDS ORDERED: PANTOPRAZOLE 40 MG TABLET PO SCH (11:45)
[2022-05-19] MEDS: NIFEdipine E.R 60 MG TABLET PO SCH (11:55)
[2022-05-19] MEDS ORDERED: ACETAMINOPHEN INJECTION 100 ML IVPB ONE (11:56)
[2022-05-19] MEDS ORDERED: ACETAMINOPHEN 1000 MG/100 ML BAG IVPB ONE (12:30)
[2022-05-19] MEDS ORDERED: REMDESIVIR 200 MG in SODIUM CHLORIDE 250 ML IVPB ONE (17:30)
[2022-05-19] MEDS ORDERED: ATORVASTATIN CA 40 MG TABLET (FP) ONE (22:44)
[2022-05-19] MEDS: ATORVASTATIN CA 40 MG TABLET (FP) PO SCH (23:00)
[2022-05-20] MEDS ORDERED: MAG HYDROX/AL HYDROX/SIMETH 30 ML UNIT-DOSE CUP ONE (00:29)
[2022-05-20] MEDS: MAG HYDROX/AL HYDROX/SIMETH 30 ML UNIT-DOSE CUP PO PRN ×2 (00:43→22:03)
[2022-05-20 04:08] LABS: EPI CELLS 5 /uL (0-25.1); HYALINE CASTS 0 /uL (0-3.1); PH,URINE 5.5 (5.0-8.0); URINE APPEARANCE CLEAR; URINE BACTERIA 56 /uL (0-1359); URINE BILIRUBIN NEGATIVE (NEGATIVE); URINE COLOR YELLOW; URINE GLUCOSE (UA) NEGATIVE (NEGATIVE); URINE KETONE NEGATIVE (NEGATIVE); URINE LEUK ESTERASE NEGATIVE (NEGATIVE); URINE NITRITE NEGATIVE (NEGATIVE); URINE PROTEIN NEGATIVE (NEGATIVE); URINE RBC 28 /uL (0-23.9); URINE UROBILINOGEN 0.2 mg/dL (0.2-1.0); URINE WBC 2 /uL (0-25.8)
[2022-05-20] MEDS ORDERED: ASPIRIN COATED 81 MG TABLET.EC PO SCH (10:00)
[2022-05-20] MEDS ORDERED: PANTOPRAZOLE 40 MG TABLET PO ONE (10:34)
[2022-05-20] MEDS ORDERED: LOSARTAN POTASSIUM 50 MG TABLET ONE (10:35)
[2022-05-20] MEDS ORDERED: HYDROCHLOROTHIAZIDE 25 MG TABLET (FP) ONE (10:35)
[2022-05-20] MEDS ORDERED: ENOXAPARIN NA (PORCINE) 40 MG/0.4 ML DISP.SYRIN SQ ONE (10:35)
[2022-05-20] MEDS ORDERED: NIFEdipine E.R 60 MG TABLET PO ONE (10:35)
[2022-05-20] MEDS: ENOXAPARIN NA (PORCINE) 40 MG/0.4 ML DISP.SYRIN SQ SCH (10:57)
[2022-05-20] MEDS: NIFEdipine E.R 60 MG TABLET PO SCH (10:57)
[2022-05-20] MEDS: PANTOPRAZOLE 40 MG TABLET PO SCH (10:57)
[2022-05-20] MEDS: HYDROCHLOROTHIAZIDE 12.5 MG CAPSULE (FP) PO SCH (10:57)
[2022-05-20] MEDS: LOSARTAN POTASSIUM 50 MG TABLET PO SCH (10:57)
[2022-05-20 13:19] LABS: BASO % 0.8 % (0-2.0); EOS % 0.1 % (0-4.5); HEMATOCRIT 45.2 % (32.4-45.2); LYMPH % 31.9 % (8-40); MCH 30.5 pg (25.7-33.7); MCHC 33.1 g/dl (32.0-36.0); MEAN CELL VOLUME 91.9 fl (80-96); MEAN PLT VOLUME 8.9 fl (7.5-11.1); MONO % 11.3 % (3.8-10.2); NEUT % 55.9 % (42.8-82.8); PLATELET COUNT 268 10^3/uL (134-434); RBC 4.92 M/mm3 (3.60-5.2); RDW 13.8 % (11.6-15.6); WHITE BLOOD COUNT 4.9 K/mm3 (4.0-10.0)
[2022-05-20 13:52] LABS: CALCIUM 9.3 mg/dL (8.5-10.1)
[2022-05-20 13:53] LABS: ALBUMIN 3.9 g/dl (3.4-5.0); BLOOD UREA NITROGEN 12.6 mg/dL (7-18); MAGNESIUM 2.6 mg/dL (1.8-2.4)
[2022-05-20 13:56] LABS: CREATININE 0.8 mg/dL (0.55-1.3); PHOSPHOROUS 3.4 mg/dL (2.5-4.9)
[2022-05-20 13:57] LABS: TOT PROT 8.9 g/dl (6.4-8.2)
[2022-05-20 13:58] LABS: BILIRUBIN,TOTAL 0.3 mg/dL (0.2-1)
[2022-05-20] MEDS: REMDESIVIR 100 MG in SODIUM CHLORIDE 250 ML IVPB SCH (14:51)
[2022-05-20] MEDS: SODIUM CHLORIDE 1,000 ML IV SCH (15:32)
[2022-05-20 19:28] VITALS: RESP 18
[2022-05-20] MEDS: ATORVASTATIN CA 40 MG TABLET (FP) PO SCH (22:03)
[2022-05-21 01:24] VITALS: BMI 29.2
[2022-05-21] MEDS ORDERED: ACETAMINOPHEN 325 MG TABLET (FP) PO PRN (05:06)
[2022-05-21] MEDS: ENOXAPARIN NA (PORCINE) 40 MG/0.4 ML DISP.SYRIN SQ SCH (10:17)
[2022-05-21] MEDS: LOSARTAN POTASSIUM 50 MG TABLET PO SCH (10:18)
[2022-05-21] MEDS: HYDROCHLOROTHIAZIDE 12.5 MG CAPSULE (FP) PO SCH (10:18)
[2022-05-21] MEDS: NIFEdipine E.R 60 MG TABLET PO SCH (10:18)
[2022-05-21] MEDS: PANTOPRAZOLE 40 MG TABLET PO SCH (10:18)
[2022-05-21] MEDS: SODIUM CHLORIDE 1,000 ML IV SCH ×2 (11:18→15:46)
[2022-05-21 12:15] LABS: BASO % 0.8 % (0-2.0); HEMATOCRIT 41.6 % (32.4-45.2); HEMOGLOBIN 13.9 GM/dL (10.7-15.3); LYMPH % 51.6 % (8-40); MCH 30.3 pg (25.7-33.7); MCHC 33.4 g/dl (32.0-36.0); MEAN CELL VOLUME 90.9 fl (80-96); MEAN PLT VOLUME 8.9 fl (7.5-11.1); MONO % 10.2 % (3.8-10.2); NEUT % 37.4 % (42.8-82.8); PLATELET COUNT 258 10^3/uL (134-434); RBC 4.58 M/mm3 (3.60-5.2); RDW 13.4 % (11.6-15.6)
[2022-05-21 12:45] LABS: BLOOD UREA NITROGEN 18.8 mg/dL (7-18); CALCIUM 8.4 mg/dL (8.5-10.1)
[2022-05-21 14:06] VITALS: BP 155/89; PULSE 82; TEMP 98.7
[2022-05-21] MEDS: REMDESIVIR 100 MG in SODIUM CHLORIDE 250 ML IVPB SCH (15:46)
== END 2022-05-21 17:56 | disposition home or self-care (01) ==
LOC: JER 05:57 → JERBED 10:23 → J5S 05-20 20:06
PROVIDERS: ADMIT Internal Medicine; ATTEND Internal Medicine
PROC: 3E033NZ Introduction of Analgesics, Hypnotics, Sedatives into Peripheral Vein, Percutaneous Approach (ICD-10-PCS; principal; 2022-05-19)
PROC: 3E023GC Introduction of Other Therapeutic Substance into Muscle, Percutaneous Approach (ICD-10-PCS; 2022-05-19)
PROC: 3E033GC Introduction of Other Therapeutic Substance into Peripheral Vein, Percutaneous Approach (ICD-10-PCS; 2022-05-19)
DX: U07.1 COVID-19 (principal); R10.13 Epigastric pain; R94.31 Abnormal electrocardiogram [ECG] [EKG]; R11.2 Nausea with vomiting, unspecified; I10 Essential (primary) hypertension; F12.10 Cannabis abuse, uncomplicated; K29.70 Gastritis, unspecified, without bleeding; Z88.8 Allergy status to other drugs, medicaments and biological substances; Z88.5 Allergy status to narcotic agent; F17.210 Nicotine dependence, cigarettes, uncomplicated
CPT/HCPCS: 0241U-QW; 36415; 71046-TC-FY; 76705-TC; 80048; 80053; 80061; 81003; 82550; 82553; 82728; 83036; 83605; 83690; 83735; 84100; 84443; 84484; 85025; 85610; 85730; 86140; 93005; 93010; 96365; 96372; 96375; 99285-25; C9399; G0378

== ENCOUNTER 2022-07-24 05:07 | Observation (INO) | payer OTHER ==
[2022-07-24] MEDS ORDERED: SODIUM CHLORIDE 0.9% 500 ML INFUS.BAG IV ONE (05:17)
[2022-07-24] MEDS ORDERED: METOCLOPRAMIDE HCL INJECTION 10 MG/2 ML VIAL IVPUSH ONE (05:17)
[2022-07-24] MEDS ORDERED: METOCLOPRAMIDE HCL INJECTION 10 MG/2 ML VIAL ONE (05:42)
[2022-07-24] MEDS ORDERED: ACETAMINOPHEN 1000 MG/100 ML BAG IVPB ONE (06:35)
[2022-07-24] MEDS ORDERED: FAMOTIDINE 20 MG/50 ML IVPB 20 MG/50 ML MG IVPB ONE ×2 (06:35→06:41)
[2022-07-24] MEDS ORDERED: ACETAMINOPHEN INJECTION 100 ML IVPB ONE (06:41)
[2022-07-24 06:46] LABS: HEMATOCRIT 42.2 % (32.4-45.2); MCH 30.6 pg (25.7-33.7); MCHC 33.1 g/dl (32.0-36.0); MEAN CELL VOLUME 92.4 fl (80-96); MEAN PLT VOLUME 9.3 fl (7.5-11.1); PLATELET COUNT 310 10^3/uL (134-434); RBC 4.57 M/mm3 (3.60-5.2); RDW 13.9 % (11.6-15.6)
[2022-07-24 07:06] LABS: CALCIUM 9.1 mg/dL (8.5-10.1)
[2022-07-24 07:07] LABS: ALBUMIN 3.9 g/dl (3.4-5.0); BLOOD UREA NITROGEN 18.5 mg/dL (7-18); MAGNESIUM 2.1 mg/dL (1.8-2.4)
[2022-07-24 07:11] LABS: BILIRUBIN,TOTAL 0.2 mg/dL (0.2-1); TOT PROT 8.6 g/dl (6.4-8.2)
[2022-07-24] MEDS ORDERED: HALOPERIDOL LACTATE 5 MG/ML IM ONE ×3 (07:56→08:02)
[2022-07-24] MEDS ORDERED: LOSARTAN POTASSIUM 50 MG TABLET PO ONE (13:12)
[2022-07-24] MEDS ORDERED: HYDROCHLOROTHIAZIDE 12.5 MG CAPSULE (FP) PO ONE (13:13)
[2022-07-24] MEDS ORDERED: HYDROCHLOROTHIAZIDE 25 MG TABLET (FP) ONE (13:15)
[2022-07-24] MEDS ORDERED: LOSARTAN POTASSIUM 50 MG TABLET ONE (13:16)
[2022-07-24] MEDS ORDERED: NIFEdipine E.R 60 MG TABLET PO ONE (13:16)
[2022-07-24] MEDS ORDERED: NIFEdipine E.R. 90 MG TABLET PO ONE (13:22)
[2022-07-24] MEDS ORDERED: LORazepam 2 MG/ML SDV VIAL IVPUSH ONE (17:29)
[2022-07-24 18:12] LABS: OPIATES, URI NEGATIVE (NEGATIVE); URINE BARBITURATES NEGATIVE (NEGATIVE)
[2022-07-24 18:13] LABS: COCAINE, UR NEGATIVE (NEGATIVE); METHADONE, UR NEGATIVE (NEGATIVE); PHENCYCLIDINE,URINE NEGATIVE (NEGATIVE); URINE AMPHETAMINES NEGATIVE (NEGATIVE); URINE BENZODIAZEPINES NEGATIVE (NEGATIVE)
[2022-07-24] MEDS ORDERED: hydrALAZINE HCL 20 MG/ML VIAL IVPUSH ONE (18:40)
[2022-07-24 19:07] LABS: URINE APPEARANCE CLEAR; URINE COLOR YELLOW
[2022-07-24 19:08] LABS: PH,URINE 6.5 (5.0-8.0); URINE BILIRUBIN NEGATIVE (NEGATIVE); URINE GLUCOSE (UA) NEGATIVE (NEGATIVE); URINE KETONE NEGATIVE (NEGATIVE); URINE LEUK ESTERASE NEGATIVE (NEGATIVE); URINE NITRITE NEGATIVE (NEGATIVE); URINE PROTEIN 100 (NEGATIVE); URINE UROBILINOGEN 0.2 mg/dL (0.2-1.0)
[2022-07-24] MEDS ORDERED: hydrALAZINE HCL 20 MG/ML VIAL ONE (19:17)
[2022-07-24] MEDS: KCL 10 MEQ IVPB 10 MEQ/100 ML INFUS.BAG IVPB SCH (19:43)
[2022-07-24] MEDS ORDERED: KCL 10 MEQ IVPB 20 MEQ/200 ML INFUS.BAG IVPB ONE (19:51)
[2022-07-24] MEDS ORDERED: TRIMETHOBENZAMIDE HCL 200MG/2ML INJ IM PRN (20:32)
[2022-07-24] MEDS: LACTATED RINGERS SOLUTION 1,000 ML/1,000 ML INFUS.BAG IV SCH (20:33)
[2022-07-24] MEDS ORDERED: hydrALAZINE HCL 20 MG/ML VIAL IVPUSH PRN (20:34)
[2022-07-24] MEDS ORDERED: hydrALAZINE HCL 25 MG TABLET (FP) ONE (21:51)
[2022-07-24] MEDS ORDERED: LABETALOL HCL 100 MG TABLET (FP) ONE (21:51)
[2022-07-24] MEDS ORDERED: ATORVASTATIN CA 40 MG TABLET (FP) ONE (21:51)
[2022-07-24] MEDS: LABETALOL HCL 200 MG TABLET (FP) PO SCH (21:52)
[2022-07-24] MEDS: ATORVASTATIN CA 40 MG TABLET (FP) PO SCH (21:52)
[2022-07-24] MEDS ORDERED: hydrALAZINE HCL 25 MG TABLET (FP) PO SCH (22:00)
[2022-07-25 00:14] VITALS: BMI 29.7
[2022-07-25] MEDS: KCL 10 MEQ IVPB 10 MEQ/100 ML INFUS.BAG IVPB SCH (03:50)
[2022-07-25] MEDS: LABETALOL HCL 200 MG TABLET (FP) PO SCH ×3 (05:22→21:28)
[2022-07-25] MEDS: ACETAMINOPHEN 1000 MG/100 ML BAG IVPB PRN ×2 (06:37→18:26)
[2022-07-25 09:33] LABS: HEMOGLOBIN 14.1 GM/dL (10.7-15.3); MCH 30.5 pg (25.7-33.7); MCHC 34.4 g/dl (32.0-36.0); MEAN CELL VOLUME 88.6 fl (80-96); MEAN PLT VOLUME 9.4 fl (7.5-11.1); PLATELET COUNT 297 10^3/uL (134-434); RBC 4.62 M/mm3 (3.60-5.2); RDW 13.5 % (11.6-15.6); WHITE BLOOD COUNT 13.8 K/mm3 (4.0-10.0)
[2022-07-25] MEDS: LOSARTAN POTASSIUM 50 MG TABLET PO SCH (10:12)
[2022-07-25] MEDS: PANTOPRAZOLE 40 MG TABLET PO SCH (10:13)
[2022-07-25] MEDS: NIFEdipine E.R 60 MG TABLET PO SCH (10:13)
[2022-07-25] MEDS: SIMETHICONE 80 MG TAB.CHEW (FP) PO SCH ×4 (10:13→21:28)
[2022-07-25] MEDS: ENOXAPARIN NA (PORCINE) 40 MG/0.4 ML DISP.SYRIN SQ SCH (10:13)
[2022-07-25] MEDS: HYDROCHLOROTHIAZIDE 12.5 MG CAPSULE (FP) PO SCH (10:13)
[2022-07-25] MEDS ORDERED: NIFEdipine E.R. 90 MG TABLET PO ONE (13:12)
[2022-07-25] MEDS: NYSTATIN 500,000 UNITS/5 ML SUSPENSION PO SCH ×2 (17:22→23:47)
[2022-07-25] MEDS ORDERED: ONDANSETRON 4 MG/2 ML VIAL IVPB STA (18:38)
[2022-07-25] MEDS ORDERED: METOCLOPRAMIDE HCL INJECTION 10 MG/2 ML VIAL IVPB SCH ×2 (18:45→18:51)
[2022-07-25] MEDS ORDERED: DEXAMETHASONE 0.5 MG TABLET PO ONE (19:00)
[2022-07-25] MEDS: ONDANSETRON 4 MG/2 ML VIAL IVPB SCH ×2 (20:03→23:47)
[2022-07-25] MEDS: LACTATED RINGERS SOLUTION 1,000 ML/1,000 ML INFUS.BAG IV SCH ×2 (20:40→23:52)
[2022-07-25] MEDS: ATORVASTATIN CA 40 MG TABLET (FP) PO SCH (21:28)
[2022-07-25] MEDS: RIFAXIMIN 550 MG TABLET PO SCH (21:28)
[2022-07-25] MEDS: METOCLOPRAMIDE HCL INJECTION 10 MG/2 ML VIAL IVPB SCH (21:28)
[2022-07-25] MEDS: MELATONIN 5 MG TABLETS PO PRN (21:46)
[2022-07-26] MEDS: NYSTATIN 500,000 UNITS/5 ML SUSPENSION PO SCH ×4 (00:08→17:26)
[2022-07-26] MEDS: ONDANSETRON 4 MG/2 ML VIAL IVPB SCH ×2 (03:36→08:00)
[2022-07-26] MEDS: METOCLOPRAMIDE HCL INJECTION 10 MG/2 ML VIAL IVPB SCH ×3 (05:23→21:38)
[2022-07-26] MEDS: LABETALOL HCL 200 MG TABLET (FP) PO SCH ×3 (05:23→21:38)
[2022-07-26] MEDS: ACETAMINOPHEN 1000 MG/100 ML BAG IVPB PRN ×3 (05:46→23:57)
[2022-07-26] MEDS: SIMETHICONE 80 MG TAB.CHEW (FP) PO SCH ×4 (10:29→21:38)
[2022-07-26] MEDS: PANTOPRAZOLE 40 MG TABLET PO SCH (10:29)
[2022-07-26] MEDS: LOSARTAN POTASSIUM 50 MG TABLET PO SCH (10:30)
[2022-07-26] MEDS: NIFEdipine E.R 60 MG TABLET PO SCH (10:30)
[2022-07-26] MEDS: ENOXAPARIN NA (PORCINE) 40 MG/0.4 ML DISP.SYRIN SQ SCH (10:31)
[2022-07-26] MEDS: HYDROCHLOROTHIAZIDE 12.5 MG CAPSULE (FP) PO SCH (10:31)
[2022-07-26] MEDS: RIFAXIMIN 550 MG TABLET PO SCH ×2 (10:31→21:38)
[2022-07-26] MEDS: LACTATED RINGERS SOLUTION 1,000 ML/1,000 ML INFUS.BAG IV SCH (10:48)
[2022-07-26] MEDS ORDERED: FAMOTIDINE 20 MG/50 ML IVPB 20 MG/50 ML MG IVPB ONE (11:00)
[2022-07-26 15:54] LABS: BASO % 0.4 % (0-2.0); HEMATOCRIT 39.8 % (32.4-45.2); HEMOGLOBIN 13.7 GM/dL (10.7-15.3); LYMPH % 18.3 % (8-40); MCH 30.7 pg (25.7-33.7); MCHC 34.4 g/dl (32.0-36.0); MEAN CELL VOLUME 89.3 fl (80-96); MEAN PLT VOLUME 9.4 fl (7.5-11.1); MONO % 5.6 % (3.8-10.2); NEUT % 75.7 % (42.8-82.8); PLATELET COUNT 282 10^3/uL (134-434); RBC 4.45 M/mm3 (3.60-5.2); RDW 13.6 % (11.6-15.6); WHITE BLOOD COUNT 8.4 K/mm3 (4.0-10.0)
[2022-07-26 16:14] LABS: BLOOD UREA NITROGEN 20.6 mg/dL (7-18)
[2022-07-26 16:15] LABS: ALBUMIN 3.6 g/dl (3.4-5.0); MAGNESIUM 2.1 mg/dL (1.8-2.4)
[2022-07-26 16:18] LABS: CREATININE 0.9 mg/dL (0.55-1.3)
[2022-07-26 16:19] LABS: BILIRUBIN,TOTAL 0.4 mg/dL (0.2-1)
[2022-07-26 16:20] LABS: TOT PROT 7.6 g/dl (6.4-8.2)
[2022-07-26] MEDS ORDERED: POTASSIUM CHLORIDE TABS 20 MEQ TABLET.ER (FP) PO ONE (16:33)
[2022-07-26] MEDS: ATORVASTATIN CA 40 MG TABLET (FP) PO SCH (21:38)
[2022-07-26] MEDS: MELATONIN 5 MG TABLETS PO PRN (21:47)
[2022-07-27] MEDS: NYSTATIN 500,000 UNITS/5 ML SUSPENSION PO SCH ×4 (00:22→18:05)
[2022-07-27] MEDS: ONDANSETRON 4 MG/2 ML VIAL IVPB PRN ×2 (04:40→09:17)
[2022-07-27] MEDS: LABETALOL HCL 200 MG TABLET (FP) PO SCH ×3 (05:48→23:15)
[2022-07-27] MEDS: ACETAMINOPHEN 1000 MG/100 ML BAG IVPB PRN (06:00)
[2022-07-27] MEDS: METOCLOPRAMIDE HCL INJECTION 10 MG/2 ML VIAL IVPB SCH ×2 (06:49→14:07)
[2022-07-27] MEDS: NIFEdipine E.R 60 MG TABLET PO SCH (09:17)
[2022-07-27] MEDS: LOSARTAN POTASSIUM 50 MG TABLET PO SCH (09:17)
[2022-07-27] MEDS: SIMETHICONE 80 MG TAB.CHEW (FP) PO SCH ×4 (09:17→23:16)
[2022-07-27] MEDS: RIFAXIMIN 550 MG TABLET PO SCH ×2 (09:17→23:15)
[2022-07-27] MEDS: HYDROCHLOROTHIAZIDE 12.5 MG CAPSULE (FP) PO SCH (09:17)
[2022-07-27] MEDS: ENOXAPARIN NA (PORCINE) 40 MG/0.4 ML DISP.SYRIN SQ SCH ×2 (09:17→11:48)
[2022-07-27] MEDS: PANTOPRAZOLE 40 MG TABLET PO SCH (09:17)
[2022-07-27] MEDS: KETOROLAC TROMETHAMINE 10 MG TABLET PO SCH ×4 (09:18→23:16)
[2022-07-27] MEDS ORDERED: traMADol HCL 50 MG TABLET PO ONE (11:14)
[2022-07-27 11:48] LABS: BASO % 0.9 % (0-2.0); EOS % 0.1 % (0-4.5); HEMATOCRIT 41.8 % (32.4-45.2); HEMOGLOBIN 14.2 GM/dL (10.7-15.3); LYMPH % 31.1 % (8-40); MCH 30.4 pg (25.7-33.7); MEAN CELL VOLUME 89.4 fl (80-96); MEAN PLT VOLUME 8.9 fl (7.5-11.1); MONO % 6.5 % (3.8-10.2); NEUT % 61.4 % (42.8-82.8); PLATELET COUNT 305 10^3/uL (134-434); RBC 4.67 M/mm3 (3.60-5.2); RDW 13.7 % (11.6-15.6); WHITE BLOOD COUNT 6.6 K/mm3 (4.0-10.0)
[2022-07-27 12:35] LABS: ALBUMIN 3.6 g/dl (3.4-5.0); MAGNESIUM 2.3 mg/dL (1.8-2.4)
[2022-07-27 12:36] LABS: BLOOD UREA NITROGEN 19.7 mg/dL (7-18)
[2022-07-27 12:39] LABS: CREATININE 1.1 mg/dL (0.55-1.3)
[2022-07-27 12:40] LABS: TOT PROT 7.7 g/dl (6.4-8.2)
[2022-07-27] MEDS ORDERED: POTASSIUM CHLORIDE ORAL LIQUID 20 MEQ/15 ML PO ONE (12:46)
[2022-07-27] MEDS: METOCLOPRAMIDE HCL 10 MG TABLET (FP) PO SCH (18:04)
[2022-07-27] MEDS: ATORVASTATIN CA 40 MG TABLET (FP) PO SCH (23:15)
[2022-07-28] MEDS: NYSTATIN 500,000 UNITS/5 ML SUSPENSION PO SCH ×4 (05:11→17:39)
[2022-07-28] MEDS: KETOROLAC TROMETHAMINE 10 MG TABLET PO SCH ×6 (05:42→23:02)
[2022-07-28] MEDS: METOCLOPRAMIDE HCL 10 MG TABLET (FP) PO SCH ×3 (07:07→17:28)
[2022-07-28] MEDS: LABETALOL HCL 200 MG TABLET (FP) PO SCH ×3 (07:07→22:58)
[2022-07-28] MEDS: ENOXAPARIN NA (PORCINE) 40 MG/0.4 ML DISP.SYRIN SQ SCH (11:15)
[2022-07-28] MEDS: RIFAXIMIN 550 MG TABLET PO SCH (11:15)
[2022-07-28] MEDS: SIMETHICONE 80 MG TAB.CHEW (FP) PO SCH ×4 (11:15→22:57)
[2022-07-28] MEDS: HYDROCHLOROTHIAZIDE 12.5 MG CAPSULE (FP) PO SCH (11:15)
[2022-07-28] MEDS: PANTOPRAZOLE 40 MG TABLET PO SCH (11:15)
[2022-07-28 13:33] LABS: BASO % 0.3 % (0-2.0); EOS % 0.3 % (0-4.5); HEMATOCRIT 40.5 % (32.4-45.2); HEMOGLOBIN 13.9 GM/dL (10.7-15.3); LYMPH % 35.9 % (8-40); MCH 30.4 pg (25.7-33.7); MCHC 34.5 g/dl (32.0-36.0); MEAN CELL VOLUME 88.3 fl (80-96); MEAN PLT VOLUME 9.5 fl (7.5-11.1); MONO % 7.8 % (3.8-10.2); NEUT % 55.7 % (42.8-82.8); PLATELET COUNT 290 10^3/uL (134-434); RBC 4.58 M/mm3 (3.60-5.2); RDW 13.7 % (11.6-15.6); WHITE BLOOD COUNT 6.2 K/mm3 (4.0-10.0)
[2022-07-28 13:57] LABS: CALCIUM 9.1 mg/dL (8.5-10.1)
[2022-07-28 13:58] LABS: ALBUMIN 3.6 g/dl (3.4-5.0); BLOOD UREA NITROGEN 28.3 mg/dL (7-18); MAGNESIUM 2.3 mg/dL (1.8-2.4)
[2022-07-28 14:01] LABS: CREATININE 1.3 mg/dL (0.55-1.3)
[2022-07-28 14:03] LABS: BILIRUBIN,TOTAL 0.7 mg/dL (0.2-1); TOT PROT 7.3 g/dl (6.4-8.2)
[2022-07-28] MEDS: LOSARTAN POTASSIUM 50 MG TABLET PO SCH (15:42)
[2022-07-28] MEDS: NIFEdipine E.R 60 MG TABLET PO SCH (15:42)
[2022-07-28] MEDS ORDERED: POTASSIUM CHLORIDE TABS 20 MEQ TABLET.ER (FP) PO ONE (17:06)
[2022-07-28] MEDS ORDERED: DEXAMETHASONE SOD PHOSPHATE 4 MG/1 ML VIAL IVPUSH ONE (22:00)
[2022-07-28] MEDS ORDERED: DEXAMETHASONE 0.5 MG TABLET PO ONE (22:00)
[2022-07-28] MEDS: ATORVASTATIN CA 40 MG TABLET (FP) PO SCH (22:58)
[2022-07-28] MEDS: MELATONIN 5 MG TABLETS PO PRN (23:44)
[2022-07-29] MEDS: NYSTATIN 500,000 UNITS/5 ML SUSPENSION PO SCH ×3 (01:46→11:55)
[2022-07-29] MEDS: KETOROLAC TROMETHAMINE 10 MG TABLET PO SCH ×2 (05:02→12:52)
[2022-07-29] MEDS ORDERED: MAG HYDROX/AL HYDROX/SIMETH 30 ML UNIT-DOSE CUP PO ONE (06:41)
[2022-07-29] MEDS: LABETALOL HCL 200 MG TABLET (FP) PO SCH ×2 (06:55→13:20)
[2022-07-29] MEDS: METOCLOPRAMIDE HCL 10 MG TABLET (FP) PO SCH ×2 (06:55→11:55)
[2022-07-29 10:01] VITALS: RESP 20
[2022-07-29] MEDS: SIMETHICONE 80 MG TAB.CHEW (FP) PO SCH ×2 (10:02→13:20)
[2022-07-29] MEDS: PANTOPRAZOLE 40 MG TABLET PO SCH (10:02)
[2022-07-29] MEDS: ENOXAPARIN NA (PORCINE) 40 MG/0.4 ML DISP.SYRIN SQ SCH (10:02)
[2022-07-29] MEDS: HYDROCHLOROTHIAZIDE 12.5 MG CAPSULE (FP) PO SCH (10:03)
[2022-07-29] MEDS: LOSARTAN POTASSIUM 50 MG TABLET PO SCH (10:03)
[2022-07-29] MEDS: NIFEdipine E.R 60 MG TABLET PO SCH (10:03)
[2022-07-29 11:38] LABS: BASO % 0.6 % (0-2.0); EOS % 0.4 % (0-4.5); HEMATOCRIT 40.9 % (32.4-45.2); HEMOGLOBIN 13.9 GM/dL (10.7-15.3); LYMPH % 34.8 % (8-40); MCH 30.1 pg (25.7-33.7); MEAN CELL VOLUME 88.6 fl (80-96); MEAN PLT VOLUME 8.8 fl (7.5-11.1); MONO % 8.9 % (3.8-10.2); NEUT % 55.3 % (42.8-82.8); PLATELET COUNT 288 10^3/uL (134-434); RBC 4.62 M/mm3 (3.60-5.2); WHITE BLOOD COUNT 5.1 K/mm3 (4.0-10.0)
[2022-07-29 12:00] LABS: ALBUMIN 3.5 g/dl (3.4-5.0); CALCIUM 8.9 mg/dL (8.5-10.1)
[2022-07-29 12:01] LABS: BLOOD UREA NITROGEN 35.3 mg/dL (7-18); MAGNESIUM 2.4 mg/dL (1.8-2.4)
[2022-07-29 12:04] LABS: CREATININE 1.5 mg/dL (0.55-1.3)
[2022-07-29 12:05] LABS: BILIRUBIN,TOTAL 0.5 mg/dL (0.2-1); TOT PROT 7.2 g/dl (6.4-8.2)
[2022-07-29 13:23] VITALS: BP 122/70; PULSE 76; TEMP 98
[2022-07-30] MEDS ORDERED: METOCLOPRAMIDE HCL 10 MG TABLET (FP) PO PRN (07:00)
== END 2022-07-29 14:03 | disposition home or self-care (01) ==
LOC: JER 05:07 → INTOOBSV 17:30 → UNDOADMOB 17:30 → JERBED 17:30 → J8W 23:16 → JERBED 23:16 → J8W 23:16
PROVIDERS: ADMIT Internal Medicine; ATTEND Nurse Practitioner Acute Care
PROC: 3E033NZ Introduction of Analgesics, Hypnotics, Sedatives into Peripheral Vein, Percutaneous Approach (ICD-10-PCS; principal; 2022-07-24)
PROC: 3E023GC Introduction of Other Therapeutic Substance into Muscle, Percutaneous Approach (ICD-10-PCS; 2022-07-24)
PROC: 3E023GC Introduction of Other Therapeutic Substance into Muscle, Percutaneous Approach (ICD-10-PCS; 2022-07-24)
PROC: 3E033GC Introduction of Other Therapeutic Substance into Peripheral Vein, Percutaneous Approach (ICD-10-PCS; 2022-07-24)
PROC: 3E0337Z Introduction of Electrolytic and Water Balance Substance into Peripheral Vein, Percutaneous Approach (ICD-10-PCS; 2022-07-24)
PROC: 3E0333Z Introduction of Anti-inflammatory into Peripheral Vein, Percutaneous Approach (ICD-10-PCS; 2022-07-24)
DX: F12.10 Cannabis abuse, uncomplicated (principal); I16.0 Hypertensive urgency; R10.9 Unspecified abdominal pain; R11.2 Nausea with vomiting, unspecified; D35.00 Benign neoplasm of unspecified adrenal gland; K29.70 Gastritis, unspecified, without bleeding; E78.5 Hyperlipidemia, unspecified
CPT/HCPCS: 0241U-QW; 36415; 74177-TC; 74183-TC; 74240-TC-FY; 80053; 80307; 81003; 82088; 82384; 82533; 82575; 83690; 83735; 83970; 84244; 84484; 85025; 85027; 87045; 87046; 87086; 87186; 93005; 93010; 93306-TC; 96361; 96365; 96372; 96375; 96376; 99285-25; A9579; G0378; Q9967

== ENCOUNTER 2023-07-19 19:42 | Emergency (ER) | payer OTHER ==
[2023-07-19 19:49] VITALS: BMI 40.2
[2023-07-19 19:50] VITALS: RESP 18
[2023-07-19 20:47] LABS: EPI CELLS 10 /uL (0-25.1); HYALINE CASTS 0 /uL (0-3.1); PH,URINE 5.5 (5.0-8.0); URINE APPEARANCE CLEAR; URINE BACTERIA 246 /uL (0-1359); URINE BILIRUBIN NEGATIVE (NEGATIVE); URINE COLOR YELLOW; URINE GLUCOSE (UA) NEGATIVE (NEGATIVE); URINE KETONE 1+ (NEGATIVE); URINE LEUK ESTERASE NEGATIVE (NEGATIVE); URINE NITRITE NEGATIVE (NEGATIVE); URINE PROTEIN NEGATIVE (NEGATIVE); URINE RBC 8 /uL (0-23.9); URINE UROBILINOGEN 0.2 mg/dL (0.2-1.0); URINE WBC 6 /uL (0-25.8)
[2023-07-19 22:20] LABS: BASO % 0.7 % (0-2.0); EOS % 0.5 % (0-4.5); HEMATOCRIT 38.8 % (32.4-45.2); HEMOGLOBIN 13.1 GM/dL (10.7-15.3); LYMPH % 36.5 % (8-40); MCH 30.9 pg (25.7-33.7); MCHC 33.9 g/dl (32.0-36.0); MEAN CELL VOLUME 91.1 fl (80-96); MEAN PLT VOLUME 8.7 fl (7.5-11.1); MONO % 7.7 % (3.8-10.2); NEUT % 54.6 % (42.8-82.8); PLATELET COUNT 310 10^3/uL (134-434); RBC 4.26 M/mm3 (3.60-5.2); RDW 13.9 % (11.6-15.6); WHITE BLOOD COUNT 6.3 K/mm3 (4.0-10.0)
[2023-07-19 22:31] LABS: INR 1.07 (0.83-1.09); PROTHROMBIN TIME (PATIENT) 12.4 SEC (9.7-13.0)
[2023-07-19 22:34] LABS: ACTIVATED PTT 33.1 SECONDS (25.2-36.5)
[2023-07-19 22:36] LABS: ALBUMIN 3.7 g/dl (3.4-5.0); BLOOD UREA NITROGEN 25.8 mg/dL (7-18); CALCIUM 9.3 mg/dL (8.5-10.1)
[2023-07-19 22:39] LABS: CREATININE 1.1 mg/dL (0.55-1.3)
[2023-07-19 22:40] LABS: BILIRUBIN,TOTAL 0.6 mg/dL (0.2-1); TOT PROT 8.5 g/dl (6.4-8.2)
[2023-07-19] MEDS ORDERED: FAMOTIDINE 20 MG/50 ML IVPB 20 MG/50 ML MG IVPB ONE ×2 (22:53→23:55)
[2023-07-19] MEDS ORDERED: ACETAMINOPHEN INJECTION 100 ML IVPB ONE (22:53)
[2023-07-19] MEDS ORDERED: ONDANSETRON 4 MG/2 ML VIAL ONE (22:53)
[2023-07-19] MEDS: ONDANSETRON 4 MG/2 ML VIAL IVPUSH ONE (23:04)
[2023-07-19] MEDS: ACETAMINOPHEN 1000 MG/100 ML BAG IVPB ONE (23:04)
[2023-07-20] MEDS: FAMOTIDINE 20 MG/50 ML IVPB 20 MG/50 ML MG IVPB ONE (00:01)
[2023-07-20] MEDS: SODIUM CHLORIDE 1,000 ML IV STA (00:01)
[2023-07-20 02:33] VITALS: BP 124/70; PULSE 72; TEMP 98.4
== END 2023-07-20 03:05 | disposition home or self-care (01) ==
LOC: JER 19:42
PROC: 3E033GC Introduction of Other Therapeutic Substance into Peripheral Vein, Percutaneous Approach (ICD-10-PCS; principal; 2023-07-19)
PROC: 3E033NZ Introduction of Analgesics, Hypnotics, Sedatives into Peripheral Vein, Percutaneous Approach (ICD-10-PCS; 2023-07-19)
PROC: 3E033GC Introduction of Other Therapeutic Substance into Peripheral Vein, Percutaneous Approach (ICD-10-PCS; 2023-07-19)
PROC: 3E0337Z Introduction of Electrolytic and Water Balance Substance into Peripheral Vein, Percutaneous Approach (ICD-10-PCS; 2023-07-19)
DX: R10.13 Epigastric pain (principal); R11.2 Nausea with vomiting, unspecified; Z20.822 Contact with and (suspected) exposure to COVID-19
CPT/HCPCS: 0241U-QW; 36415; 74177-TC; 80053; 81003; 83690; 84484; 85025; 85610; 85730; 87086; 93005; 93010; 99285-25; J0131; Q9967

== ENCOUNTER 2023-09-09 07:19 | Emergency (ER) | payer OTHER ==
[2023-09-09 07:55] VITALS: BMI 66.1
[2023-09-09] MEDS ORDERED: HYDROmorphone HCl 2 MG/ML VIAL ONE (08:51)
[2023-09-09] MEDS ORDERED: ACETAMINOPHEN 325 MG TABLET (FP) ONE (08:52)
[2023-09-09] MEDS: HYDROmorphone HCl 2 MG/ML VIAL IM ONE (08:59)
[2023-09-09] MEDS: ACETAMINOPHEN 325 MG TABLET (FP) PO ONE (09:00)
[2023-09-09] MEDS: diazePAM 5 MG TABLET PO ONE ×2 (09:01→11:29)
[2023-09-09] MEDS ORDERED: diazePAM 5 MG TABLET ONE (11:17)
[2023-09-09 11:23] VITALS: TEMP 98
[2023-09-09 11:32] VITALS: BP 143/71; PULSE 87; RESP 19
== END 2023-09-09 12:20 | disposition home or self-care (01) ==
LOC: JER 07:19
PROC: 3E023NZ Introduction of Analgesics, Hypnotics, Sedatives into Muscle, Percutaneous Approach (ICD-10-PCS; principal; 2023-09-09)
DX: M54.50 Low back pain, unspecified (principal); W10.9XXA Fall (on) (from) unspecified stairs and steps, initial encounter
CPT/HCPCS: 70450-TC; 72125-TC; 72128-TC; 72131-TC; 72170-TC-FY; 99284-25

== ENCOUNTER 2023-09-11 06:40 | Emergency (ER) | payer OTHER ==
[2023-09-11 06:49] VITALS: TEMP 98.2; BMI 29.9
[2023-09-11] MEDS: ACETAMINOPHEN 1000 MG/100 ML BAG IVPB ONE (08:25)
[2023-09-11] MEDS: FAMOTIDINE 20 MG/50 ML IVPB 20 MG/50 ML MG IVPB ONE (08:26)
[2023-09-11] MEDS ORDERED: ACETAMINOPHEN 325 MG TABLET (FP) ONE (08:27)
[2023-09-11] MEDS ORDERED: FAMOTIDINE 10 MG TABLET ONE ×2 (08:27→10:21)
[2023-09-11] MEDS ORDERED: HALOPERIDOL LACTATE 5 MG/ML ONE (08:27)
[2023-09-11] MEDS ORDERED: MAG HYDROX/AL HYDROX/SIMETH 30 ML UNIT-DOSE CUP ONE ×2 (08:28→10:21)
[2023-09-11] MEDS: MAG HYDROX/AL HYDROX/SIMETH -MYLANTA- ORAL SUSPENSION PO ONE (08:35)
[2023-09-11] MEDS: HALOPERIDOL LACTATE 5 MG/ML IM ONE (08:35)
[2023-09-11] MEDS: FAMOTIDINE 10 MG TABLET PO ONE ×2 (08:35→10:24)
[2023-09-11] MEDS: ACETAMINOPHEN 500 MG TABLET (FP) PO ONE (08:35)
[2023-09-11 08:56] LABS: BASO % 0.4 % (0-2.0); HEMATOCRIT 40.7 % (32.4-45.2); HEMOGLOBIN 13.8 GM/dL (10.7-15.3); LYMPH % 10.5 % (8-40); MCH 31.2 pg (25.7-33.7); MCHC 33.9 g/dl (32.0-36.0); MEAN CELL VOLUME 92.1 fl (80-96); MEAN PLT VOLUME 8.3 fl (7.5-11.1); MONO % 1.5 % (3.8-10.2); NEUT % 87.6 % (42.8-82.8); PLATELET COUNT 329 10^3/uL (134-434); RBC 4.42 M/mm3 (3.60-5.2); RDW 13.5 % (11.6-15.6); WHITE BLOOD COUNT 10.2 K/mm3 (4.0-10.0)
[2023-09-11 09:25] LABS: POTASSIUM 3.5 mmol/L (3.5-5.1)
[2023-09-11 09:27] LABS: CALCIUM 9.8 mg/dL (8.5-10.1)
[2023-09-11 09:28] LABS: ALBUMIN 4.2 g/dl (3.4-5.0); BLOOD UREA NITROGEN 13.5 mg/dL (7-18)
[2023-09-11 09:30] LABS: CREATININE 0.9 mg/dL (0.55-1.3)
[2023-09-11 09:32] LABS: BILIRUBIN,TOTAL 0.3 mg/dL (0.2-1)
[2023-09-11] MEDS ORDERED: HYDROCHLOROTHIAZIDE 25 MG TABLET (FP) ONE (09:43)
[2023-09-11] MEDS ORDERED: LOSARTAN POTASSIUM 50 MG TABLET ONE (09:43)
[2023-09-11] MEDS ORDERED: TRIMETHOBENZAMIDE HCL 200MG/2ML INJ IM ONE (09:43)
[2023-09-11] MEDS: TRIMETHOBENZAMIDE HCL 200MG/2ML INJ IM ONE (09:55)
[2023-09-11] MEDS: LOSARTAN POTASSIUM 50 MG TABLET PO ONE (09:56)
[2023-09-11] MEDS: HYDROCHLOROTHIAZIDE 12.5 MG CAPSULE (FP) PO ONE (09:56)
[2023-09-11 10:06] VITALS: RESP 18
[2023-09-11] MEDS: MAG HYDROX/AL HYDROX/SIMETH 30 ML UNIT-DOSE CUP PO ONE (10:24)
[2023-09-11 11:20] VITALS: PULSE 84
[2023-09-11] MEDS ORDERED: SUCRALFATE 1 GM TABLET (FP) ONE (12:03)
[2023-09-11] MEDS ORDERED: NIFEdipine E.R 60 MG TABLET PO ONE (12:04)
[2023-09-11] MEDS: SUCRALFATE 1 GM/10 ML UNIT DOSE CUPS PO ONE (12:08)
[2023-09-11] MEDS: NIFEdipine E.R 60 MG TABLET PO ONE (12:08)
[2023-09-11] MEDS: SODIUM CHLORIDE 1,000 ML IV STA (12:08)
[2023-09-11 12:59] VITALS: BP 186/85
== END 2023-09-11 13:33 | disposition home or self-care (01) ==
LOC: JER 06:40
PROC: 3E0337Z Introduction of Electrolytic and Water Balance Substance into Peripheral Vein, Percutaneous Approach (ICD-10-PCS; principal; 2023-09-11)
PROC: 3E023GC Introduction of Other Therapeutic Substance into Muscle, Percutaneous Approach (ICD-10-PCS; 2023-09-11)
PROC: 3E023GC Introduction of Other Therapeutic Substance into Muscle, Percutaneous Approach (ICD-10-PCS; 2023-09-11)
DX: R10.13 Epigastric pain (principal); R11.2 Nausea with vomiting, unspecified; K29.70 Gastritis, unspecified, without bleeding
CPT/HCPCS: 36415; 80053; 82962; 83690; 84484; 85025; 93005; 93010; 99284-25

== ENCOUNTER 2024-02-12 17:32 | Emergency (ER) | payer OTHER ==
[2024-02-12 17:47] VITALS: BMI 29.9
[2024-02-12 17:57] VITALS: PULSE 90
[2024-02-12 19:07] LABS: BASO % 0.6 % (0-2.0); EOS % 0.6 % (0-4.5); HEMATOCRIT 41.2 % (32.4-45.2); HEMOGLOBIN 13.8 GM/dL (10.7-15.3); LYMPH % 18.4 % (8-40); MCH 30.9 pg (25.7-33.7); MCHC 33.5 g/dl (32.0-36.0); MEAN CELL VOLUME 92.1 fl (80-96); MEAN PLT VOLUME 8.5 fl (7.5-11.1); MONO % 5.4 % (3.8-10.2); PLATELET COUNT 324 10^3/uL (134-434); RBC 4.47 M/mm3 (3.60-5.2); RDW 13.3 % (11.6-15.6); WHITE BLOOD COUNT 14.7 K/mm3 (4.0-10.0)
[2024-02-12 19:11] LABS: VENOUS BASE EXCESS 2.4 mmol/L (-2-2); VENOUS O2 SATURATION 37.4 % (70-80); VENOUS PCO2 41.1 mmHg (38-52); VENOUS PH 7.433 (7.310-7.410)
[2024-02-12 19:25] LABS: POTASSIUM 4.2 mmol/L (3.5-5.1)
[2024-02-12 19:27] LABS: CALCIUM 9.8 mg/dL (8.5-10.1)
[2024-02-12 19:28] LABS: ALBUMIN 3.9 g/dl (3.4-5.0); BLOOD UREA NITROGEN 12.7 mg/dL (7-18)
[2024-02-12 19:32] LABS: BILIRUBIN,TOTAL 0.3 mg/dL (0.2-1); TOT PROT 8.4 g/dl (6.4-8.2)
[2024-02-12] MEDS ORDERED: ACETAMINOPHEN INJECTION 100 ML ONE (20:01)
[2024-02-12] MEDS ORDERED: DEXAMETHASONE SOD PHOSPHATE 10 MG/1 ML VIAL ONE (20:01)
[2024-02-12] MEDS ORDERED: ALBUTEROL SO4 2.5/IPRATROPIUM 0.5 INH SOL 3 ML VIAL.NEB. NEB ONE ×3 (20:01→22:25)
[2024-02-12] MEDS: ACETAMINOPHEN 1000 MG/100 ML BAG IVPB ONE (20:11)
[2024-02-12] MEDS: DEXAMETHASONE SOD PHOSPHATE 10 MG/1 ML VIAL IVPUSH ONE (20:11)
[2024-02-12] MEDS: ALBUTEROL SO4 2.5/IPRATROPIUM 0.5 INH SOL 3 ML VIAL.NEB. NEB SCH (20:11)
[2024-02-12 22:01] VITALS: BP 115/64; RESP 18; TEMP 98.9
[2024-02-12] MEDS ORDERED: guaiFENesin/D-METHORPHAN HB 10 ML UNIT-DOSE CUPS ONE (22:01)
[2024-02-12] MEDS: guaiFENesin 200 MG/10 ML 10 ML UNIT-DOSE CUPS PO ONE (22:03)
[2024-02-12] MEDS ORDERED: MAGNESIUM SULFATE IN WATER 2 GM/50 ML IVPB IVPB ONE (22:25)
[2024-02-12] MEDS: ALBUTEROL SO4 2.5/IPRATROPIUM 0.5 INH SOL 3 ML VIAL.NEB. NEB ONE (22:30)
[2024-02-12] MEDS: MAGNESIUM SULF 50% (8.12 MEQ/2 ML-1 GM VIAL) IVPB ONE (22:31)
[2024-02-13 03:00] LABS: MAGNESIUM 2.3 mg/dL (1.8-2.4)
== END 2024-02-12 23:55 | disposition home or self-care (01) ==
LOC: JER 17:32
PROC: 3E033NZ Introduction of Analgesics, Hypnotics, Sedatives into Peripheral Vein, Percutaneous Approach (ICD-10-PCS; principal; 2024-02-12)
PROC: 3E033GC Introduction of Other Therapeutic Substance into Peripheral Vein, Percutaneous Approach (ICD-10-PCS; 2024-02-12)
PROC: 3E033GC Introduction of Other Therapeutic Substance into Peripheral Vein, Percutaneous Approach (ICD-10-PCS; 2024-02-12)
PROC: 3E0F7GC Introduction of Other Therapeutic Substance into Respiratory Tract, Via Natural or Artificial Opening (ICD-10-PCS; 2024-02-12)
PROC: 3E0F7GC Introduction of Other Therapeutic Substance into Respiratory Tract, Via Natural or Artificial Opening (ICD-10-PCS; 2024-02-12)
DX: J44.0 Chronic obstructive pulmonary disease with (acute) lower respiratory infection (principal); J44.1 Chronic obstructive pulmonary disease with (acute) exacerbation; J40 Bronchitis, not specified as acute or chronic; R07.89 Other chest pain; R06.02 Shortness of breath; R05.9 Cough, unspecified; R09.81 Nasal congestion; R53.81 Other malaise; R51.9 Headache, unspecified; R50.9 Fever, unspecified; Z20.822 Contact with and (suspected) exposure to COVID-19
CPT/HCPCS: 0241U-QW; 36415; 71045-TC-FY; 80053; 82803; 83735; 84484; 85025; 93005; 93010; 99285-25; J0131; J1100